=== PATIENT | female | born 1960 | race Caucasian/White ===

== ENCOUNTER 2016-07-09 08:59 | Day surgery (SDC) | payer OTHER ==
[2016-07-07 08:37] VITALS: BMI 36.0
[~2016-07-09 08:59] MED LIST: LACTATED RINGERS 1,000 ML IV SCH; MOXIFLOXACIN HCL 0.5% DROPS 3 ML BTL OP ONE; TETRACAINE 0.5% OPHTH (PF) DROPS 4 ML BTL OP ONE; TIMOLOL 0.5% OPHTH SOLN (PF) 0.2 ML DROPERETTE OP ONE
[2016-07-09 10:28] VITALS: RESP 16; TEMP 97.5
[2016-07-09] MEDS ORDERED: LIDOCAINE 1% 20 ML VIAL (10MG/ML) FOR IV START INTRADERMA ONE (10:32)
[2016-07-09] MEDS: PHENYLEPHRINE 2.5% OPHTH DRP 2ML OP NR ×3 (10:34→10:42)
[2016-07-09] MEDS: CYCLOPENTOLATE 1% OPHTH SOLN 2 ML BTL OP ONE ×3 (10:37→10:44)
[2016-07-09] MEDS ORDERED: MIDAZOLAM 2 MG/2 ML VIAL ONE (12:28)
[2016-07-09] MEDS ORDERED: fentaNYL (PF) 50 MCG/ML 2 ML AMP ONE (12:28)
[2016-07-09] MEDS ORDERED: LIDOCAINE 1% (PF) 10MG/ML VIAL MISCELLANE ONE (12:33)
[2016-07-09] MEDS ORDERED: BALANCED SALT IRRIG SOLN COMB2 15 ML IRRIG.SOLN INTRAOCULA ONE (12:33)
[2016-07-09] MEDS ORDERED: HYALURONATE SODIUM INTRAOCULAR 1 EACH SYRINGE (12MG/ML) INTRAOCULA ONE (12:33)
[2016-07-09] MEDS ORDERED: FLUORESCEIN STRIPS 1 MG STRIP LEFT EYE ONE (12:52)
[2016-07-09] MEDS ORDERED: EPINEPHrine (PF) 0.3 ML in BALANCED SALT IRRIG SOLN COMB2 500 ML IRRIGATION ONE (12:55)
--- NOTE | 2016-07-09 12:58 | P.OP ---
Date of Procedure: 07/09/16 Preoperative Diagnosis: & CS & PSC &b reg astigmatism Postoperative Diagnosis: same Procedure(s) Performed: PIOL, OS Implants: [id number] 18.50 Anesthesia: MAC Surgeon: Brennan Mas Estimated Blood Loss (ml): 0 Pathology: none sent Condition: stable Disposition: same day Indications for Procedure: blurry vision Operative Findings: No complications
[2016-07-09 13:18] VITALS: BP 130/79; PULSE 74
--- NOTE | 2016-07-09 21:51 | OP ---
DATE OF SERVICE: 07/09/2016 SURGEON: KELLY GREENWOOD MD GROCERY BUYER: PREOPERATIVE DIAGNOSES: Nuclear sclerosis, cortical sclerosis, posterior subcapsular cataract, and regular astigmatism. POSTOPERATIVE DIAGNOSES: Nuclear sclerosis, cortical sclerosis, posterior subcapsular cataract, and regular astigmatism. OPERATION: Phacoemulsification of cataract and intraocular lens implant of the left eye. ANESTHESIA: Topical. ESTIMATED BLOOD LOSS: None. SPECIMENS REMOVED: None. COMPLICATIONS: OPERATIVE FINDINGS: DESCRIPTION OF PROCEDURE: NARRATIVE: After obtaining the appropriate consent, the patient was brought to the operating room. There she was asked to sit upright and the axes of 0 and 180 degrees was marked with a gentian karina marker on her corneal limbus. She was then placed in the proper supine position under cardiac monitoring, then prepped and draped in the usual sterile manner. She was approached from her left temporal side. Using previously acquired corneal topography information, the axis of 92 degrees was identified and marked with the gentian karina marker. At the 5:00 o'clock position a 1.1 mm stab blade was used to create a paracentesis port. Through this opening, 1% Xylocaine MPF 50-50 mix with balance salt solution was injected into the anterior chamber. This was followed by stabilization of the anterior chamber with Amvisc. At the 3:00 position a 2.5 mm keratome was used to create a self-sealing corneal flap incision in a Langerman fashion. A cystotome was then introduced into the anterior chamber to begin a continuous tear capsulorrhexis, which was completed using the Utrata forceps. Hydrodissection and hydrodelineation of the lens was accomplished with balanced salt solution. Phacoemulsification of the lens utilizing phaco chop was accomplished in 7.16 seconds at 10% power. Additional Xylocaine MPF was instilled into the anterior chamber. This was followed by removal of the remaining cortex under irrigation and aspiration as well as careful polishing of the posterior capsule in the capsule vacuum mode. Additional Amvisc was then used to stabilize the capsular bag, and deepen the anterior chamber and an SARAI model ZCT 225 18.5 diopter spherical equivalent 2.25 diopters cylinder correction posterior chamber was then introduced into the capsular bag without difficulty. Once the remaining viscoelastic was removed from in and around the intraocular lens, the lens was rotated in alignment with the previously placed corneal ravi at the 92 degrees axis. The lens was slightly tamponading in position against the posterior capsule to ensure stability. The remaining viscoelastic was removed from the anterior chamber. The eye was then brought to normal intraocular pressure through the paracentesis port with balanced salt solution and to ensure stability of the implant both the paracentesis as well as the temporal incision were covered with ReSure. Watertight integrity was confirmed using a fluorescein strip. The patient then received 2 drops of 0.5% timolol followed by 2 drops of Vigamox, was then lightly patched and shielded in the usual manner. There were no complications from the procedure. She tolerated the procedure well and was returned to outpatient recovery in good condition.
== END 2016-07-09 13:26 | disposition home or self-care (01) ==
LOC: OR 08:59
PROVIDERS: ATTEND Ophthalmology
DX: H25.042 Posterior subcapsular polar age-related cataract, left eye (principal); H25.012 Cortical age-related cataract, left eye; H25.12 Age-related nuclear cataract, left eye; H52.223 Regular astigmatism, bilateral; I10 Essential (primary) hypertension; E78.5 Hyperlipidemia, unspecified; Z79.899 Other long term (current) drug therapy; Z88.2 Allergy status to sulfonamides
CPT/HCPCS: 66984; V2787; C1780; J2250; J0171; J3010; J2001; 99152; 99153

== ENCOUNTER 2017-07-18 10:41 | Observation (INO) | payer BC, OTHER ==
[2017-07-18] MEDS ORDERED: NITROGLYCERIN OINT 1 INCH/GM PACKET TOPICAL STA (10:57)
[2017-07-18] MEDS ORDERED: ASPIRIN 81 MG PO STA (10:57)
[2017-07-18] MEDS ORDERED: NITROGLYCERIN SL TABS 0.4 MG TAB SUBLINGUAL STA (10:57)
--- NOTE | 2017-07-18 11:01 | ED ---
General Adult HPI - General Chief complaint: Chest Pain Stated complaint: CHEST PAIN Time Seen by Provider: 07/18/17 10:41 Source: patient, family, RN notes reviewed Mode of arrival: wheelchair Limitations: no limitations - History of Present Illness Initial comments: This is a 56-year-old female presents emergency department stating that she started having chest pain at about 9:00 this morning. Patient states it appeared to start in her back, and come straight through to her chest she said it was very intense she was short of breath not diaphoretic mildly nauseous but she stated that it lasted for about 20 minutes and then subsided but never completely went away. Patient states she still has some of the chest discomfort at this time. Patient states at this time she's not short of breath. Patient denies any recent fever chills per patient denies any diabetes high cholesterol. Patient states she does have hypertension. Patient denies smoking and she denies a family history of heart disease. Patient denies any abdominal pain patient denies vomiting or diarrhea. Patient denies lightheadedness dizziness or near syncopal episode. Patient denies any calf pain or leg swelling. Patient states occasional deep breathing seems to make the pain worse - Related Data Home Medications Medication Instructions Recorded Confirmed Hydrochlorothiazide 25 mg PO DAILY 05/19/16 07/18/17 Fenofibrate 54 mg PO DAILY 06/10/16 07/18/17 Lisinopril [Prinivil] 5 mg PO DAILY 07/18/17 07/18/17 Allergies Allergy/AdvReac Type Severity Reaction Status Date / Time Sulfa (Sulfonamide Allergy Rash/Hives, Verified 07/18/17 11:51 Antibiotics) and Nausea Review of Systems ROS Statement: Those systems with pertinent positive or pertinent negative responses have been documented in the HPI. ROS Other: All systems not noted in ROS Statement are negative. Past Medical History Past Medical History: Hyperlipidemia, Hypertension Additional Past Medical History / Comment(s): . History of Any Multi-Drug Resistant Organisms: None Reported Past Surgical History: Hysterectomy, Tubal Ligation Additional Past Surgical History / Comment(s): LAP BAND , RIGHT SHOULDER, RIGHT ANKLE -PLATE AND SCREW- IRRITATING REMOVED FROM ANKLE, rt eye cataract Past Anesthesia/Blood Transfusion Reactions: No Reported Reaction Past Psychological History: No Psychological Hx Reported Smoking Status: Never smoker Past Alcohol Use History: Rare Past Drug Use History: None Reported - Past Family History Father Family Medical History: Cancer Mother Family Medical History: Cancer General Exam - General Exam Comments Initial Comments: GENERAL: Patient is well-developed and well-nourished. Patient is nontoxic and well- hydrated and is in mild distress. ENT: Neck is soft and supple. No significant lymphadenopathy is noted. Oropharynx is clear. Moist mucous membranes. Neck has full range of motion without eliciting any pain. EYES: The sclera were anicteric and conjunctiva were pink and moist. Extraocular movements were intact and pupils were equal round and reactive to light. Eyelids were unremarkable. PULMONARY: Unlabored respirations. Good breath sounds bilaterally. No audible rales rhonchi or wheezing was noted. CARDIOVASCULAR: There is a regular rate and rhythm without any murmurs gallops or rubs. ABDOMEN: Soft and nontender with normal bowel sounds. No palpable organomegaly was noted. There is no palpable pulsatile mass. SKIN: Skin is clear with no lesions or rashes and otherwise unremarkable. NEUROLOGIC: Patient is alert and oriented x3. Cranial nerves II through XII are grossly intact. Motor and sensory are also intact. Normal speech, volume and content. Symmetrical smile. MUSCULOSKELETAL: Normal extremities with adequate strength and full range of motion. No lower extremity swelling or edema. No calf tenderness. LYMPHATICS: No significant lymphadenopathy is noted PSYCHIATRIC: Normal psychiatric evaluation. Normal interpersonal interactions appears functionally intact in deals appropriately with others. No signs of depression. No signs of anxiety. Limitations: no limitations Course Vital Signs 07/18/17 07/18/17 07/18/17 10:45 11:09 11:55 Temperature 97.6 F 97.1 F L Pulse Rate 89 83 72 Respiratory 20 17 16 Rate Blood Pressure 164/90 133/66 149/77 O2 Sat by Pulse 100 98 95 Oximetry 07/18/17 07/18/17 12:28 14:17 Temperature 97.7 F Pulse Rate 71 62 Respiratory 16 16 Rate Blood Pressure 144/75 134/73 O2 Sat by Pulse 98 98 Oximetry Medical Decision Making - Medical Decision Making EKG shows a normal sinus rhythm at 82 bpm ND interval is 176 QRS is 108 QT interval 370 QTC is 441 per patient's EKG shows no ST segment elevation or depression or T wave abnormalities are noted. I went back into the room to reevaluate the patient she stated after the nitroglycerin she had no more pain unless she moves. Patient states while she lies are still there is actually no pain when she moves from one side to the other she develops a little bit of back pain but no chest pain. Chest x-ray shows no acute abnormality. - Lab Data Result diagrams: 07/18/17 10:50 07/18/17 10:50 Lab Results 07/18/17 07/18/17 07/18/17 Range/Units 10:50 10:50 10:50 WBC 8.6 (3.8-10.6) k/uL RBC 4.79 (3.80-5.40) m/uL Hgb 14.4 (11.4-16.0) gm/dL Hct 43.2 (34.0-46.0) % MCV 90.3 (80.0-100.0) fL MCH 30.1 (25.0-35.0) pg MCHC 33.4 (31.0-37.0) g/dL RDW 12.3 (11.5-15.5) % Plt Count 409 (150-450) k/uL Neutrophils % 68 % Lymphocytes % 25 % Monocytes % 4 % Eosinophils % 2 % Basophils % 0 % Neutrophils # 5.9 (1.3-7.7) k/uL Lymphocytes # 2.2 (1.0-4.8) k/uL Monocytes # 0.3 (0-1.0) k/uL Eosinophils # 0.1 (0-0.7) k/uL Basophils # 0.0 (0-0.2) k/uL PT (9.0-12.0) sec INR (<1.2) APTT (22.0-30.0) sec D-Dimer (<0.60) mg/L FEU Sodium 141 (137-145) mmol/L Potassium 4.1 (3.5-5.1) mmol/L Chloride 105 (98-107) mmol/L Carbon Dioxide 24 (22-30) mmol/L Anion Gap 12 mmol/L BUN 17 (7-17) mg/dL Creatinine 0.70 (0.52-1.04) mg/dL Est GFR (MDRD) Af Amer >60 (>60 ml/min/1.73 sqM) Est GFR (MDRD) Non-Af >60 (>60 ml/min/1.73 sqM) Glucose 171 H (74-99) mg/dL Calcium 9.6 (8.4-10.2) mg/dL Magnesium 2.0 (1.6-2.3) mg/dL Total Bilirubin 0.5 (0.2-1.3) mg/dL AST 25 (14-36) U/L ALT 32 (9-52) U/L Alkaline Phosphatase 79 (38-126) U/L Total Creatine Kinase 128 (30-135) U/L CK-MB (CK-2) 1.0 (0.0-2.4) ng/mL CK-MB (CK-2) Rel Index 0.8 Troponin I <0.012 (0.000-0.034) ng/mL Total Protein 7.0 (6.3-8.2) g/dL Albumin 4.1 (3.5-5.0) g/dL Amylase 67 (30-110) U/L Lipase 193 (23-300) U/L 07/18/17 Range/Units 10:50 WBC (3.8-10.6) k/uL RBC (3.80-5.40) m/uL Hgb (11.4-16.0) gm/dL Hct (34.0-46.0) % MCV (80.0-100.0) fL MCH (25.0-35.0) pg MCHC (31.0-37.0) g/dL RDW (11.5-15.5) % Plt Count (150-450) k/uL Neutrophils % % Lymphocytes % % Monocytes % % Eosinophils % % Basophils % % Neutrophils # (1.3-7.7) k/uL Lymphocytes # (1.0-4.8) k/uL Monocytes # (0-1.0) k/uL Eosinophils # (0-0.7) k/uL Basophils # (0-0.2) k/uL PT 9.9 (9.0-12.0) sec INR 1.0 (<1.2) APTT 22.7 (22.0-30.0) sec D-Dimer 0.31 (<0.60) mg/L FEU Sodium (137-145) mmol/L Potassium (3.5-5.1) mmol/L Chloride (98-107) mmol/L Carbon Dioxide (22-30) mmol/L Anion Gap mmol/L BUN (7-17) mg/dL Creatinine (0.52-1.04) mg/dL Est GFR (MDRD) Af Amer (>60 ml/min/1.73 sqM) Est GFR (MDRD) Non-Af (>60 ml/min/1.73 sqM) Glucose (74-99) mg/dL Calcium (8.4-10.2) mg/dL Magnesium (1.6-2.3) mg/dL Total Bilirubin (0.2-1.3) mg/dL AST (14-36) U/L ALT (9-52) U/L Alkaline Phosphatase (38-126) U/L Total Creatine Kinase (30-135) U/L CK-MB (CK-2) (0.0-2.4) ng/mL CK-MB (CK-2) Rel Index Troponin I (0.000-0.034) ng/mL Total Protein (6.3-8.2) g/dL Albumin (3.5-5.0) g/dL Amylase (30-110) U/L Lipase (23-300) U/L Disposition Clinical Impression: Unstable angina Disposition: ADMITTED IP TO THIS HOSP
[2017-07-18 11:14] LABS: Basophils % (A) 0 %; Eosinophils # (A) 0.1 k/uL (0-0.7); Eosinophils % (A) 2 %; HCT 43.2 % (34.0-46.0); HGB 14.4 gm/dL (11.4-16.0); Lymphocytes # (A) 2.2 k/uL (1.0-4.8); Lymphocytes % (A) 25 %; MCH 30.1 pg (25.0-35.0); MCHC 33.4 g/dL (31.0-37.0); MCV 90.3 fL (80.0-100.0); Mean Platelet Volume 6.6; Monocytes # (A) 0.3 k/uL (0-1.0); Monocytes % (A) 4 %; Neutrophils # (A) 5.9 k/uL (1.3-7.7); Neutrophils % (A) 68 %; Platelet Count 409 k/uL (150-450); RBC 4.79 m/uL (3.80-5.40); RDW 12.3 % (11.5-15.5); WBC 8.6 k/uL (3.8-10.6)
[2017-07-18 11:25] LABS: ALT 32 U/L (9-52); AST 25 U/L (14-36); Albumin 4.1 g/dL (3.5-5.0); Alkaline Phosphatase 79 U/L (38-126); Amylase 67 U/L (30-110); Anion Gap 12 mmol/L; Blood Urea Nitrogen 17 mg/dL (7-17); Calcium 9.6 mg/dL (8.4-10.2); Carbon Dioxide 24 mmol/L (22-30); Chloride 105 mmol/L (98-107); Glucose 171 mg/dL (74-99); Lipase 193 U/L (23-300); Potassium 4.1 mmol/L (3.5-5.1); Sodium 141 mmol/L (137-145); Total Bilirubin 0.5 mg/dL (0.2-1.3)
[2017-07-18 11:27] LABS: D-Dimer 0.31 mg/L FEU (<0.60)
[2017-07-18 11:31] LABS: Partial Thromboplastin Time 22.7 sec (22.0-30.0); Prothrombin Time 9.9 sec (9.0-12.0)
--- NOTE | 2017-07-18 11:40 | XR ---
EXAMINATION TYPE: XR chest 2V DATE OF EXAM: 07/18/2017 HISTORY: Chest Pain. REFERENCE: NONE. FINDINGS: There is platelike atelectasis in the right midlung. The lungs are otherwise clear. Pleural space are clear. The heart is not enlarged. There is mild hypertrophic spondylosis within the spine. IMPRESSION: SCARRING VERSUS ATELECTASIS, RIGHT MIDLUNG.
[2017-07-18 11:41] LABS: Creatine Kinase 128 U/L (30-135)
[2017-07-18 11:54] LABS: Troponin I <0.012 ng/mL (0.000-0.034)
[2017-07-18 11:57] VITALS: RESP 16
[2017-07-18] MEDS ORDERED: HEPARIN SODIUM,PORCINE 5,000 UNIT/ML 1 ML VIAL IV ONE (12:06)
[2017-07-18] MEDS ORDERED: NITROGLYCERIN SL TABS 0.4 MG TAB SUBLINGUAL PRN (12:07)
[2017-07-18] MEDS ORDERED: HEPARIN SOD,PORK IN 0.45% NACL 25,000 UNIT in 0.45% NACL 1 500ML.BAG IV SCH (12:15)
[2017-07-18] MEDS: SODIUM CHLORIDE 0.9% 1,000 ML IV SCH (12:25)
[2017-07-18 15:15] VITALS: BMI 40.8
[2017-07-18] MEDS ORDERED: HEPARIN SODIUM,PORCINE 5,000 UNIT/ML 1 ML VIAL IV PRN (16:31)
[2017-07-18] MEDS ORDERED: ACETAMINOPHEN TAB 325 MG TAB PO PRN (16:36)
[2017-07-18] MEDS: LISINOPRIL 5 MG TAB PO SCH (17:31)
[2017-07-18] MEDS: FENOFIBRATE 54 MG TAB PO SCH (17:31)
[2017-07-18] MEDS: HYDROCHLOROTHIAZIDE 25 MG TAB PO SCH (17:31)
[2017-07-18] MEDS: NITROGLYCERIN OINT 1 INCH/GM PACKET TOPICAL SCH (17:42)
[2017-07-18 18:46] LABS: Creatine Kinase 110 U/L (30-135)
[2017-07-18 19:26] LABS: Creatine Kinase MB 0.9 ng/mL (0.0-2.4); Troponin I <0.012 ng/mL (0.000-0.034)
[2017-07-18 23:52] LABS: Creatine Kinase 105 U/L (30-135)
[2017-07-19 00:05] LABS: Creatine Kinase MB 0.8 ng/mL (0.0-2.4); Troponin I <0.012 ng/mL (0.000-0.034)
[2017-07-19] MEDS: NITROGLYCERIN OINT 1 INCH/GM PACKET TOPICAL SCH ×2 (00:11→05:24)
[2017-07-19 03:03] LABS: Cholesterol 218 mg/dL (<200); HDL Cholesterol 50 mg/dL (40-60); LDL Cholesterol,Calculated 124 mg/dL (0-99); Triglycerides 222 mg/dL (<150)
[2017-07-19] MEDS ORDERED: ASPIRIN 325 MG TAB PO SCH (09:00)
[2017-07-19] MEDS: HYDROCHLOROTHIAZIDE 25 MG TAB PO SCH (09:08)
[2017-07-19] MEDS: LISINOPRIL 5 MG TAB PO SCH (09:08)
[2017-07-19] MEDS: FENOFIBRATE 54 MG TAB PO SCH (09:08)
[2017-07-19 12:07] VITALS: BP 129/77; PULSE 70; TEMP 97.6
--- NOTE | 2017-07-19 12:25 | P.HPIM ---
History of Present Illness 56-year-old female who presented to the emergency room with back pain. Patient said that her pain started all of a sudden. No follow trauma. She said that her pain was associated with chest pain as well. She denies being dizzy, lightheaded, no diaphoresis or nausea. Patient said that the episode lasted approximately 20 minutes. She rates her pain as 6 out of 10 in severity. Patient was evaluated in the emergency room and 12-lead EKG showed no acute ischemic changes. chest x-ray showed a right midlung scarring but no other acute findings. Patient was placed on observation and was seen and evaluated by cardiology. Her pain was thought to be atypical in nature. She was cleared for discharge home. Plan to follow-up in the office and may consider stress testing as an outpatient. Review of Systems Review of system: 14 points review of systems were obtained and were negative except to what were mentioned in the HPI. Past Medical History Past Medical History: Hyperlipidemia, Hypertension Additional Past Medical History / Comment(s): . History of Any Multi-Drug Resistant Organisms: None Reported Past Surgical History: Hysterectomy, Tubal Ligation Additional Past Surgical History / Comment(s): LAP BAND , RIGHT SHOULDER, RIGHT ANKLE -PLATE AND SCREW- IRRITATING REMOVED FROM ANKLE, rt eye cataract Past Anesthesia/Blood Transfusion Reactions: No Reported Reaction Past Psychological History: No Psychological Hx Reported Smoking Status: Never smoker Past Alcohol Use History: Rare Past Drug Use History: None Reported - Past Family History Father Family Medical History: Cancer Mother Family Medical History: Cancer Medications and Allergies Home Medications Medication Instructions Recorded Confirmed Type Hydrochlorothiazide 25 mg PO DAILY 05/19/16 07/18/17 History Fenofibrate 54 mg PO DAILY 06/10/16 07/18/17 History Lisinopril [Prinivil] 5 mg PO DAILY 07/18/17 07/18/17 History Allergies Allergy/AdvReac Type Severity Reaction Status Date / Time Sulfa (Sulfonamide Allergy Rash/Hives, Verified 07/18/17 11:51 Antibiotics) and Nausea Physical Exam Vitals: Vital Signs Temp Pulse Pulse Resp BP BP Pulse Ox 07/19/17 12:07 95 07/19/17 12:00 97.6 F 70 16 129/77 95 07/19/17 08:00 97.5 F L 82 16 131/70 98 07/19/17 07:17 97 07/19/17 04:00 97.9 F 82 16 133/68 97 07/19/17 00:00 97.6 F 75 16 132/71 94 L 07/18/17 23:26 81 16 07/18/17 20:00 98.3 F 75 16 120/66 94 L 07/18/17 14:26 97.5 F L 73 16 123/70 98 07/18/17 14:17 97.7 F 62 16 134/73 98 07/18/17 12:28 71 16 144/75 98 Intake and Output 07/18/17 07/19/17 07/19/17 22:59 06:59 14:59 Intake Total 142.333 239.813 Balance 142.333 239.813 Intake: Intake, IV Titration 142.333 239.813 Amount Heparin Sod,Pork in 0.45% 142.333 239.813 NaCl 25,000 unit In 0.45 % NaCl 1 500ml.bag @ 8.89 UNITS/KG/HR 20 mls/hr IV .Q24H [facility] Rx#:[id number] Other: # Voids 2 3 General: The patient is awake and alert, in no distress Eye: there is normal conjunctiva bilaterally. Neck: The neck is supple, there is no JVD. Cardiovascular: Normal S1-S2, no S3-S4, no murmurs. Respiratory: Lungs clear to auscultation bilaterally Gastrointestinal: Abdomen is soft, nontender Musculoskeletal: There is no pedal edema. Neurological:. Speech is normal. Skin: Skin is warm and dry Results CBC & Chem 7: 07/18/17 10:50 07/18/17 10:50 Labs: Abnormal Lab Results - Last 24 Hours (Table) 07/19/17 07/19/17 Range/Units 02:19 02:19 APTT 31.0 H (22.0-30.0) sec Triglycerides 222 H (<150) mg/dL Cholesterol 218 H (<200) mg/dL LDL Cholesterol, Calc 124 H (0-99) mg/dL Thrombosis Risk Factor Assmnt - Choose All That Apply Any of the Below Risk Factors Present?: Yes Each Factor Represents 1 point: Age 41-60 years, Obesity (BMI >25) Thrombosis Risk Factor Assessment Total Risk Factor Score: 2 Thrombosis Risk Factor Assessment Level: Low Risk Assessment and Plan Assessment: 56-year-old female who presented to the emergency room with back pain. Patient said that her pain started all of a sudden. No follow trauma. She said that her pain was associated with chest pain as well. She denies being dizzy, lightheaded, no diaphoresis or nausea. Patient said that the episode lasted approximately 20 minutes. She rates her pain as 6 out of 10 in severity. Patient was evaluated in the emergency room and 12-lead EKG showed no acute ischemic changes. chest x-ray showed a right midlung scarring but no other acute findings. Patient was placed on observation and was seen and evaluated by cardiology. Her pain was thought to be atypical in nature. She was cleared for discharge home. Plan to follow-up in the office and may consider stress testing as an outpatient.
--- NOTE | 2017-07-19 12:26 | P.DS ---
Providers Date of admission: 07/18/17 12:09 Attending physician: Viral Cee Consults: 07/18/17 12:07 Consult Physician Urgent Consulting Provider: [facility] Consult Reason/Comments: Unstable angina Do you want consulting provider notified?: Yes Primary care physician: Sophia Hinton [facility] Course: 56-year-old female who presented to the emergency room with back pain. Patient said that her pain started all of a sudden. No follow trauma. She said that her pain was associated with chest pain as well. She denies being dizzy, lightheaded, no diaphoresis or nausea. Patient said that the episode lasted approximately 20 minutes. She rates her pain as 6 out of 10 in severity. Patient was evaluated in the emergency room and 12-lead EKG showed no acute ischemic changes. chest x-ray showed a right midlung scarring but no other acute findings. Patient was placed on observation and was seen and evaluated by cardiology. Her pain was thought to be atypical in nature. She was cleared for discharge home. Plan to follow-up in the office and may consider stress testing as an outpatient. Plan - Discharge Summary Discharge Rx Participant: No New Discharge Prescriptions: No Action Hydrochlorothiazide 25 mg PO DAILY Fenofibrate 54 mg PO DAILY Lisinopril [Prinivil] 5 mg PO DAILY Discharge Medication List Hydrochlorothiazide 25 mg PO DAILY 05/19/16 [History] Fenofibrate 54 mg PO DAILY 06/10/16 [History] Lisinopril [Prinivil] 5 mg PO DAILY 07/18/17 [History] Follow up Appointment(s)/Referral(s): Sophia Hinton MD [Primary Care Provider] - 1-2 days
--- NOTE | 2017-07-19 12:37 | P.CRDCN ---
History of Present Illness Consult date: 07/19/17 Consult reason: chest pain History of present illness: This is a pleasant 56-year-old female past medical history significant for hypertension, dyslipidemia and obesity. She denies history of coronary artery disease. We have been asked to see her in consultation for complaints of chest pain. 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 This pain was very sharp in nature and was associated with mild shortness of breath. She states the pain was persistent for approximately 45 minutes or so with no alleviating factors. This is an she decided to present to the hospital. The pain persisted in the emergency room for approximately another hour 45 minutes or so. She has had no recurrence of the pain. The pain did not radiate into the arm, neck or jaw. She denies associated nausea, vomiting, palpitations, dizziness, diaphoresis. EKG on arrival reveals sinus mechanism with an incomplete right bundle branch block. Chest x-ray negative for an acute cardiopulmonary process. Echocardiogram from the office reviewed from August 2011 reveals preserved left ventricular systolic function with ejection fraction 60%, mildly dilated left atrium, mild mitral, tricuspid and plan monitor regurg evident. Current cardiac medications include lisinopril, hydrochlorothiazide and fenofibrate. Cardiac enzymes negative 3, LDL 124, HDL 50. Review of Systems At the time of my exam: CONSTITUTIONAL: Denies fever. Denies chills. EYES: Denies blurred vision. Denies vision changes. Denies eye pain. EARS, NOSE, MOUTH & THROAT: Denies headache. Denies sore throat. Denies ear pain. CARDIOVASCULAR: Denies chest pain. Denies shortness of breath. Denies orthopnea. Denies PND. Denies palpitations. RESPIRATORY: Denies cough. GASTROINTESTINAL: Denies abdominal pain. Denies diarrhea. Denies constipation. Denies nausea. Denies vomiting. MUSCULOSKELETAL: Denies myalgias. INTEGUMENTARY: Denies pruitis. Denies rash. NEUROLOGIC: Denies numbness. Denies tingling. Denies weakness. PSYCHIATRIC: Denies anxiety. Denies depression. ENDOCRINE: Denies fatigue. Denies weight change. Denies polydipsia. Denies polyurina. GENITOURINARY: Denies burning, hematuria or urgency with micturation. HEMATOLOGIC: Denies history of anemia. Denies bleeding. Past Medical History Past Medical History: Hyperlipidemia, Hypertension Additional Past Medical History / Comment(s): . History of Any Multi-Drug Resistant Organisms: None Reported Past Surgical History: Hysterectomy, Tubal Ligation Additional Past Surgical History / Comment(s): LAP BAND , RIGHT SHOULDER, RIGHT ANKLE -PLATE AND SCREW- IRRITATING REMOVED FROM ANKLE, rt eye cataract Past Anesthesia/Blood Transfusion Reactions: No Reported Reaction Past Psychological History: No Psychological Hx Reported Smoking Status: Never smoker Past Alcohol Use History: Rare Past Drug Use History: None Reported - Past Family History Father Family Medical History: Cancer Mother Family Medical History: Cancer Medications and Allergies Home Medications Medication Instructions Recorded Confirmed Type Hydrochlorothiazide 25 mg PO DAILY 05/19/16 07/18/17 History Fenofibrate 54 mg PO DAILY 06/10/16 07/18/17 History Lisinopril [Prinivil] 5 mg PO DAILY 07/18/17 07/18/17 History Allergies Allergy/AdvReac Type Severity Reaction Status Date / Time Sulfa (Sulfonamide Allergy Rash/Hives, Verified 07/18/17 11:51 Antibiotics) and Nausea Physical Exam Vitals: Vital Signs Temp Pulse Pulse Resp BP BP Pulse Ox 07/19/17 07:17 97 07/19/17 04:00 97.9 F 82 16 133/68 97 07/19/17 00:00 97.6 F 75 16 132/71 94 L 07/18/17 23:26 81 16 07/18/17 20:00 98.3 F 75 16 120/66 94 L 07/18/17 14:26 97.5 F L 73 16 123/70 98 07/18/17 14:17 97.7 F 62 16 134/73 98 07/18/17 12:28 71 16 144/75 98 07/18/17 11:55 97.1 F L 72 16 149/77 95 07/18/17 11:09 83 17 133/66 98 07/18/17 10:45 97.6 F 89 20 164/90 100 Intake and Output 07/18/17 07/19/17 07/19/17 22:59 06:59 14:59 Intake Total 142.333 239.813 Balance 142.333 239.813 Intake: Intake, IV Titration 142.333 239.813 Amount Heparin Sod,Pork in 0.45% 142.333 239.813 NaCl 25,000 unit In 0.45 % NaCl 1 500ml.bag @ 8.89 UNITS/KG/HR 20 mls/hr IV .Q24H [facility] Rx#:[id number] Other: # Voids 2 3 Blood pressure 133/68 heart rate 71 afebrile GENERAL: This is a 56-year-old female in no apparent distress at the time of my examination. Obese. HEENT: Head is atraumatic, normocephalic. Pupils are equal, round. Sclerae anicteric. Conjunctivae are clear. Mucous membranes of the mouth are moist. Neck is supple. There is no jugular venous distention. No carotid bruit is heard. LUNGS: Clear to auscultation no wheezes, rales or rhonchi. No chest wall tenderness is noted on palpation or with deep breathing. HEART: Regular rate and rhythm without murmurs, rubs or gallops. S1 and S2 heard. ABDOMEN: Soft, nontender. Bowel sounds are heard. No organomegaly noted. EXTREMITIES: No evidence of peripheral edema and no calf tenderness noted. VASCULAR: Radial and dorsalis pedis pulses palpated, no evidence of clubbing. NEUROLOGIC: Patient is awake, alert and oriented x3. Results 07/18/17 10:50 07/18/17 10:50 Cardiac Enzymes 07/18/17 07/18/17 07/18/17 Range/Units 10:50 10:50 17:44 AST 25 (14-36) U/L CK-MB (CK-2) 1.0 0.9 (0.0-2.4) ng/mL Troponin I <0.012 <0.012 (0.000-0.034) ng/mL 07/18/17 Range/Units 23:00 AST (14-36) U/L CK-MB (CK-2) 0.8 (0.0-2.4) ng/mL Troponin I <0.012 (0.000-0.034) ng/mL Coagulation 07/18/17 07/18/17 07/19/17 Range/Units 10:50 17:44 02:19 PT 9.9 (9.0-12.0) sec APTT 22.7 26.8 31.0 H (22.0-30.0) sec Lipids 07/19/17 Range/Units 02:19 Triglycerides 222 H (<150) mg/dL Cholesterol 218 H (<200) mg/dL HDL Cholesterol 50 (40-60) mg/dL CBC 07/18/17 Range/Units 10:50 WBC 8.6 (3.8-10.6) k/uL RBC 4.79 (3.80-5.40) m/uL Hgb 14.4 (11.4-16.0) gm/dL Hct 43.2 (34.0-46.0) % Plt Count 409 (150-450) k/uL Comprehensive Metabolic Panel 07/18/17 Range/Units 10:50 Sodium 141 (137-145) mmol/L Potassium 4.1 (3.5-5.1) mmol/L Chloride 105 (98-107) mmol/L Carbon Dioxide 24 (22-30) mmol/L BUN 17 (7-17) mg/dL Creatinine 0.70 (0.52-1.04) mg/dL Glucose 171 H (74-99) mg/dL Calcium 9.6 (8.4-10.2) mg/dL AST 25 (14-36) U/L ALT 32 (9-52) U/L Alkaline Phosphatase 79 (38-126) U/L Total Protein 7.0 (6.3-8.2) g/dL Albumin 4.1 (3.5-5.0) g/dL Current Medications Generic Name Dose Route Start Last Admin Trade Name Freq PRN Reason Stop Dose Admin Acetaminophen 650 mg 07/18/17 16:36 Tylenol Tab PO Q4HR PRN Fever and/ or Pain Aspirin 325 mg 07/19/17 09:00 Aspirin PO DAILY [facility] Fenofibrate 54 mg 07/18/17 16:45 07/18/17 17:31 Lofibra PO 54 mg DAILY [facility] Administration Heparin Sodium (Porcine) 0 unit 07/18/17 16:31 Heparin IV PER PROTOCOL PRN Low PTT Protocol Hydrochlorothiazide 25 mg 07/18/17 16:45 07/18/17 17:31 Hydrodiuril PO 25 mg DAILY [facility] Administration Heparin Sodium/Sodium Chloride 500 mls @ 20 mls/hr 07/18/17 12:15 07/19/17 04 :21 25,000 unit/ Sodium Chloride IV 15.29 units/kg/hr .Q24H [facility] 34.4 mls/hr Protocol Titration 8.89 UNITS/KG/HR Sodium Chloride 1,000 mls @ 20 mls/hr 07/18/17 12:15 07/18/17 12:25 Saline 0.9% IV 20 mls/hr .Q24H [facility] Administration Lisinopril 5 mg 07/18/17 16:45 07/18/17 17:31 Zestril PO 5 mg DAILY [facility] Administration Nitroglycerin 1 inch 07/18/17 18:00 07/19/17 05:24 Nitro-Bid Oint TOPICAL Not Given Q6HR [facility] Nitroglycerin 0.4 mg 07/18/17 12:07 Nitrostat SUBLINGUAL Q5M PRN Chest Pain Intake and Output 07/18/17 07/19/17 07/19/17 22:59 06:59 14:59 Intake Total 142.333 239.813 Balance 142.333 239.813 Intake: Intake, IV Titration 142.333 239.813 Amount Heparin Sod,Pork in 0.45% 142.333 239.813 NaCl 25,000 unit In 0.45 % NaCl 1 500ml.bag @ 8.89 UNITS/KG/HR 20 mls/hr IV .Q24H [facility] Rx#:[id number] Other: # Voids 2 3 07/18/17 10:50 07/18/17 10:50 Assessment and Plan Assessment: ASSESSMENT 1. Pleuritic shoulder/chest pain, atypical. 2. Dyslipidemia, not controlled on fenofibrate with statin intolerance in the past. 3. Hypertension 4. Obesity PLAN An acute coronary event has been ruled out with negative cardiac enzymes and no acute EKG changes. Stable from a cardiac perspective for discharge home to follow up in 2-3 weeks for further cardiac testing as an outpatient. Lifestyle modifications for cholesterol lowering discussed and recommended. Thank you kindly for this consultation. Nurse Practitioner note has been reviewed, I agree with a documented findings and plan of care. Patient was seen and examined.
[2017-07-19] MEDS: SODIUM CHLORIDE 0.9% 1,000 ML IV SCH (12:52)
== END 2017-07-19 12:50 | disposition home or self-care (01) ==
LOC: EC 10:41 → 3OBS 12:09
PROVIDERS: ADMIT Internal Medicine; ATTEND Internal Medicine
DX: R07.89 Other chest pain (principal); R07.81 Pleurodynia; M25.512 Pain in left shoulder; R06.02 Shortness of breath; I10 Essential (primary) hypertension; M54.9 Dorsalgia, unspecified; E78.5 Hyperlipidemia, unspecified; E66.9 Obesity, unspecified; Z68.41 Body mass index [BMI] 40.0-44.9, adult; Z79.899 Other long term (current) drug therapy; Z88.2 Allergy status to sulfonamides; Z98.84 Bariatric surgery status; Z80.9 Family history of malignant neoplasm, unspecified
CPT/HCPCS: 99285 ×2; 96376 ×2; 96365 ×2; 96366 ×4; 36415; 93005; 85379; 80061; 80053; 82150; 82550; 82553; 83690; 83735; 84484; 85025; 85610; 85730 ×2; 71046; G0378 ×2; J1644 ×2

== ENCOUNTER → 2017-09-16 | Outpatient (CLI) | payer BC ==
--- NOTE | 2017-09-18 10:36 | MM ---
Reason for exam: screening (asymptomatic). Last mammogram was performed 1 year and 7 months ago. History: Patient is postmenopausal. Benign MG stereo VAD BX LT of the left breast, February 21, 2015. Physical Findings: A clinical breast exam by your physician is recommended on an annual basis and results should be correlated with mammographic findings. MG 3D Screening Mammo W/Cad Bilateral CC and MLO view(s) were taken. Prior study comparison: February 27, 2016, left breast MG 3d work up w/cad LT. February 22, 2016, bilateral MG 3d screening mammo w/cad. The breast tissue is heterogeneously dense. This may lower the sensitivity of mammography. No suspicious abnormality. Left biopsy marker noted. No significant changes when compared with prior studies. ASSESSMENT: Negative, BI-RAD 1 RECOMMENDATION: Routine screening mammogram of both breasts in 1 year.
== END | disposition home or self-care (01) ==
LOC: RADMAMWWP 06:51
PROVIDERS: ATTEND Family Medicine
DX: Z12.31 Encounter for screening mammogram for malignant neoplasm of breast (principal)
CPT/HCPCS: 77063; 77067

== ENCOUNTER 2018-04-04 13:05 | Emergency (ER) | payer BC ==
[2018-04-04 13:13] VITALS: BP 137/82; PULSE 85; RESP 18; TEMP 97.8
--- NOTE | 2018-04-04 13:39 | ED ---
Upper Extremity HPI - General Chief Complaint: Extremity Injury, Upper Stated Complaint: rt arm injury Time Seen by Provider: 04/04/18 13:15 Source: patient, RN notes reviewed Mode of arrival: ambulatory Limitations: no limitations - History of Present Illness Initial Comments: 57-year-old female presents emergency Department chief complaint of right arm pain. Patient states that she tripped and fell yesterday with her arm outstretched. Patient states she felt like she had cramping her right bicep and noticed that it was enlarged. Patient states it's worse today. Patient has pain when she flexes her elbow. Patient is right-hand dominant. Denies any paresthesias. Patient states that there is no ecchymosis at this time. Patient offers no other complaints. - Related Data Home Medications Medication Instructions Recorded Confirmed Hydrochlorothiazide 25 mg PO DAILY 05/19/16 07/18/17 Fenofibrate 54 mg PO DAILY 06/10/16 07/18/17 Lisinopril [Prinivil] 5 mg PO DAILY 07/18/17 07/18/17 Previous Rx's Medication Instructions Recorded Ibuprofen [Motrin] 600 mg PO Q8HR PRN #30 tab 04/04/18 Allergies Allergy/AdvReac Type Severity Reaction Status Date / Time Sulfa (Sulfonamide Allergy Rash/Hives, Verified 04/04/18 13:13 Antibiotics) and Nausea Review of Systems ROS Statement: Those systems with pertinent positive or pertinent negative responses have been documented in the HPI. ROS Other: All systems not noted in ROS Statement are negative. Past Medical History Past Medical History: Hyperlipidemia, Hypertension Additional Past Medical History / Comment(s): . History of Any Multi-Drug Resistant Organisms: None Reported Past Surgical History: Hysterectomy, Tubal Ligation Additional Past Surgical History / Comment(s): LAP BAND , RIGHT SHOULDER, RIGHT ANKLE -PLATE AND SCREW- IRRITATING REMOVED FROM ANKLE, rt eye cataract Past Anesthesia/Blood Transfusion Reactions: No Reported Reaction Past Psychological History: No Psychological Hx Reported Smoking Status: Never smoker Past Alcohol Use History: None Reported Past Drug Use History: None Reported - Past Family History Father Family Medical History: Cancer Mother Family Medical History: Cancer General Exam Limitations: no limitations General appearance: alert, in no apparent distress Neck exam: Present: normal inspection, full ROM. Absent: tenderness, meningismus, lymphadenopathy Respiratory exam: Present: normal lung sounds bilaterally. Absent: respiratory distress, wheezes, rales, rhonchi, stridor Cardiovascular Exam: Present: regular rate, normal rhythm, normal heart sounds. Absent: systolic murmur, diastolic murmur, rubs, gallop, clicks Extremities exam: Present: other (Right shoulder full range of motion, neurovascular intact right upper extremity, there is tenderness over the right bicipital groove on the right shoulder. Patient has full range motion of right elbow but has discomfort with flexion. Reflexes 2 seconds there is no forearm tenderness) Course Vital Signs 04/04/18 13:11 Temperature 97.8 F Pulse Rate 85 Respiratory 18 Rate Blood Pressure 137/82 O2 Sat by Pulse 98 Oximetry Medical Decision Making - Medical Decision Making 57-year-old female presents emergency department for right arm injury. Patient has a proximal bicipital tendon rupture. Patient discussed with Dr. jacobs on -call for orthopedics. Patient we placed in a sling for comfort and follow-up with orthopedics on Thursday. Return parameters were discussed. Disposition Clinical Impression: Biceps tendon rupture, proximal Disposition: HOME SELF-CARE Condition: Stable Instructions: Tendon Rupture (ED) Additional Instructions: Please return to the Emergency Department if symptoms worsen or any other concerns. Prescriptions: Ibuprofen [Motrin] 600 mg PO Q8HR PRN #30 tab PRN Reason: Pain Is patient prescribed a controlled substance at d/c from ED?: No Referrals: Sophia Hinton MD [Primary Care Provider] - 1-2 days Chao Phillips MD [Medical Doctor] - 1-2 days Time of Disposition: 14:26
--- NOTE | 2018-04-04 13:47 | XR ---
EXAMINATION TYPE: XR humerus RT , 2 VIEWS DATE OF EXAM ORDERED: 04/04/2018 HISTORY: Pain. COMPARISON: None. FINDINGS: No long bone fracture or dislocation is seen. IMPRESSION: NO ACUTE OSSEOUS LESION.
== END 2018-04-04 14:35 | disposition home or self-care (01) ==
LOC: EC 13:05
DX: S46.211A Strain of muscle, fascia and tendon of other parts of biceps, right arm, initial encounter (principal); E78.5 Hyperlipidemia, unspecified; I10 Essential (primary) hypertension; Z79.899 Other long term (current) drug therapy; Z88.2 Allergy status to sulfonamides; W01.0XXA Fall on same level from slipping, tripping and stumbling without subsequent striking against object, initial encounter
CPT/HCPCS: 99283

== ENCOUNTER → 2018-10-21 | Outpatient (CLI) | payer OTHER ==
--- NOTE | 2018-10-21 13:08 | BD ---
EXAMINATION TYPE: Axial Bone Density DATE OF EXAM: 10/21/2018 CLINICAL HISTORY: Height: 65.5 Weight: 258 FRAX RISK QUESTIONS: Alcohol (3 or more units per day): no Family History (Parent hip fracture): yes, mother Glucocorticoids (More than 3mos): no (Ex: prednisone, prednisolone, methylprednisolone, dexamethasone, and hydrocortisone). History of Fracture in Adulthood: yes, ankle Secondary Osteoporosis: 1. Type 1 Diabetes: no 2. Hyperthyroidism: no 3. Menopause before 45: no 4. Malnutrition: no 5. Chronic liver disease: no Rheumatoid Arthritis: no Current Tobacco Use: no RISK FACTORS HISTORY OF: Family History of Osteoporosis: possibly Active: yes Diet low in dairy products/other sources of calcium: no Postmenopausal woman: yes Take estrogen and/or progesterone medications: no Lost more than 2 inches in height since high school: unsure, states height was possibly about 6&3/4 Frequent falls: no Poor Health: no Hyperparathyroidism: no Adrenal Insufficiency: no MEDICATIONS: Prednisone or other steroids: no Thyroid Medications: Which medication: yes Which medication: Synthroid How Long: about one month Osteoporosis Medications: no Additional Medications: recently placed on Invokana about one month ago and a cholesterol med EXAM MEASUREMENTS: Bone mineral densitometry was performed using the [employer] System. Bone mineral density as measured about the Lumbar spine is: ----- L1-L4(G/cm2): 1.438 T Score Values are as follows: ----- L2: 2.4 ----- L3: 1.8 ----- L4: 1.9 ----- L1-L4: 2.1 Bone mineral density BASELINE Bone mineral density about the R hip (g/cm2): 1.052 Bone mineral density about the L hip (g/cm2):1.112 T Score values are as follows: -----R Neck: 0.1 -----L Neck: 0.5 -----R Total: 1.2 -----L Total: 1.8 Bone mineral density BASELINE IMPRESSION: Normal (Values between +1 and -1 indicate normal bone mass). Consider repeating this study in 5 year s or sooner if there is some new clinical indication. NOTE: T-SCORE=SD OF THE YOUNG ADULT MEAN.
--- NOTE | 2018-10-22 13:56 | MM ---
Reason for exam: screening (asymptomatic). Last mammogram was performed 1 year and 1 month ago. History: Patient is postmenopausal. Benign MG stereo VAD BX LT of the left breast, February 21, 2015. Physical Findings: A clinical breast exam by your physician is recommended on an annual basis and results should be correlated with mammographic findings. MG 3D Screening Mammo W/Cad Bilateral CC, MLO, and XCCL view(s) were taken. Prior study comparison: September 16, 2017, bilateral MG 3d screening mammo w/cad. February 27, 2016, left breast MG 3d work up w/cad LT. The breast tissue is heterogeneously dense. This may lower the sensitivity of mammography. Finding #1: There is a 15 mm circumscribed round mass located 11 cm from the nipple in the outer quadrant, posterior position of the left breast on MLO 16/79 and CC 17/72. Finding #2: There are typically benign round, regional calcifications in the left breast. New finding since February 27, 2016. ASSESSMENT: Incomplete: need additional imaging evaluation, BI-RAD 0 RECOMMENDATION: Ultrasound of the left breast. [facility] will attempt to contact patient to return for ultrasound.
== END | disposition home or self-care (01) ==
LOC: RADMAMWWP 08:32
PROVIDERS: ATTEND Family Medicine
DX: Z12.31 Encounter for screening mammogram for malignant neoplasm of breast (principal); M84.80 Other disorders of continuity of bone, unspecified site
CPT/HCPCS: 77063; 77067; 77080

== ENCOUNTER → 2018-10-29 | Outpatient (CLI) | payer OTHER ==
--- NOTE | 2018-10-29 09:55 | USB ---
Reason for exam: additional evaluation requested from abnormal screening. History: Patient is postmenopausal. Benign MG stereo VAD BX LT of the left breast, February 21, 2015. Physical Findings: Nurse did not find any significant physical abnormalities on exam. US Breast Workup Limited LT Left limited breast ultrasound including focal area of concern, retroareolar and axilla demonstrates a 0.5 x 0.3 x 0.3cm oval, cystic lesion at 3 o'clock, a 0.9 x 0.5 x 0.3cm oval, cystic cluster at 3 o'clock, a 1.5 x 1.3 x 0.8cm oval, cystic lesion at 3 o'clock and a 2.3 x 3.0 x 1.3cm nodes at the axilla, largest of two nodes. These results were verbally communicated with the patient and result sheet given to the patient on 10/29/18. ASSESSMENT: Benign, BI-RAD 2 RECOMMENDATION: Return to routine screening mammogram schedule for both breasts.
== END | disposition home or self-care (01) ==
LOC: RADUSWWP 08:49
PROVIDERS: ATTEND Family Medicine
DX: R92.8 Other abnormal and inconclusive findings on diagnostic imaging of breast (principal)

== ENCOUNTER 2019-05-09 10:01 | Emergency (ER) | payer OTHER ==
[2019-05-09 10:05] VITALS: BP 155/82; PULSE 78; RESP 18; TEMP 98
[2019-05-09] MEDS ORDERED: PROPARACAINE 0.5% OPHTH DROPS 15 ML BTL BOTH EYES STA (10:12)
[2019-05-09] MEDS ORDERED: ERYTHROMYCIN 5 MG/GM OPHTH OINT 3.5 GM TUBE BOTH EYES STA (10:14)
--- NOTE | 2019-05-09 10:15 | ED ---
Eye Problem HPI - General Chief complaint: Eye Problems Stated complaint: facial/eye burn Time Seen by Provider: 05/09/19 10:06 Source: patient, RN notes reviewed, old records reviewed Mode of arrival: ambulatory Limitations: no limitations - History of Present Illness Initial comments: This patient's a 58-year-old female, she presents emergency department today with chief complaint of left eye irritation after she dropped her hot curling iron on her left eye. Patient states that it does not feel like it hit the eyelid or the eyebrow her sister surrounding cheek but hit the actual cornea of the eye. She does wear glasses. She states that she has pain with opening her eye and pain with bright lights. Patient states she's had no other areas of burn. She reports that she has history of cataract repair surgery done by Dr. Mas. - Related Data Home Medications Medication Instructions Recorded Confirmed Hydrochlorothiazide 25 mg PO DAILY 05/19/16 05/09/19 Lisinopril [Prinivil] 5 mg PO DAILY 07/18/17 05/09/19 Levothyroxine Sodium [Synthroid] 25 mcg PO DAILY 05/09/19 05/09/19 glipiZIDE [Glucotrol] 5 mg PO BID 05/09/19 05/09/19 Previous Rx's Medication Instructions Recorded Acetaminophen-Codeine 300-30mg 1 tab PO Q6H PRN 3 Days #12 tablet 05/09/19 [Tylenol w/codeine #3] Allergies Allergy/AdvReac Type Severity Reaction Status Date / Time Sulfa (Sulfonamide Allergy Rash/Hives, Verified 05/09/19 10:35 Antibiotics) and Nausea Review of Systems ROS Statement: Those systems with pertinent positive or pertinent negative responses have been documented in the HPI. ROS Other: All systems not noted in ROS Statement are negative. Past Medical History Past Medical History: Hyperlipidemia, Hypertension Additional Past Medical History / Comment(s): . History of Any Multi-Drug Resistant Organisms: None Reported Past Surgical History: Hysterectomy, Tubal Ligation Additional Past Surgical History / Comment(s): LAP BAND , RIGHT SHOULDER, RIGHT ANKLE -PLATE AND SCREW- IRRITATING REMOVED FROM ANKLE, rt eye cataract Past Anesthesia/Blood Transfusion Reactions: No Reported Reaction Past Psychological History: No Psychological Hx Reported Smoking Status: Never smoker Past Alcohol Use History: None Reported Past Drug Use History: None Reported - Past Family History Father Family Medical History: Cancer Mother Family Medical History: Cancer General Exam - General Exam Comments Initial Comments: This is a 4-year-old female. Alert and oriented 3. Patient presents moderate discomfort. Limitations: no limitations General appearance: alert, in no apparent distress Head exam: Present: atraumatic, normocephalic, normal inspection Eye exam: Present: normal appearance, PERRL, EOMI, conjunctival injection, other (Left eye conjunctival injection. Patient has a large corneal abrasion, burn at the central pupil to the 3 o'clock position of the iris measuring approximately 40% of the iris.). Absent: scleral icterus, periorbital swelling (Patient has no areas of erythema or tenderness over the upper eyelid skin eyebrow or cheek.) ENT exam: Present: normal exam, mucous membranes moist Neck exam: Present: normal inspection. Absent: tenderness, meningismus, lymphadenopathy Respiratory exam: Present: normal lung sounds bilaterally. Absent: respiratory distress, wheezes, rales, rhonchi, stridor Cardiovascular Exam: Present: regular rate, normal rhythm, normal heart sounds. Absent: systolic murmur, diastolic murmur, rubs, gallop, clicks GI/Abdominal exam: Present: soft, normal bowel sounds. Absent: distended, tenderness, guarding, rebound, rigid Extremities exam: Present: normal inspection, full ROM, normal capillary refill. Absent: tenderness, pedal edema, joint swelling, calf tenderness Back exam: Present: normal inspection Neurological exam: Present: alert, oriented X3, CN II-XII intact Psychiatric exam: Present: normal affect, normal mood Course Vital Signs 05/09/19 10:02 Temperature 98 F Pulse Rate 78 Respiratory 18 Rate Blood Pressure 155/82 O2 Sat by Pulse 97 Oximetry Medical Decision Making - Medical Decision Making 4-year-old female presents today for evaluation for left eye pain after a curling iron hit the left eye and burned. She has a significant corneal abrasion/burn, measuring approximately 40% of the iris area. It extends from the pupil to the 3 o'clock position. Patient's visual acuity is 20/40 in the left eye and 20/30 on the right eye. She wears glasses and contacts. She was given updated tetanus shot, and erythromycin ointment. Patient was advised to follow-up with Dr. Regalado. Multiple attempts were made to contact Dr. Mas but he is unable to return the call. Patient is anxious for discharge, and discussed that I will call the Patient changes in the care per Dr. Mas and for her to follow-up with him tomorrow. All questions were answered return primary's were discussed. Discharge and Patient with a short course of pain medicine. Disposition Clinical Impression: Corneal burn Disposition: HOME SELF-CARE Condition: Good Instructions (If sedation given, give patient instructions): Corneal Abrasion (ED) Additional Instructions: Please use medication as discussed. Please follow up with family doctor if symptoms have not improved over the next two days. Please return to the emergency room if your symptoms increase or worsen or for any other concerns. Prescriptions: Acetaminophen-Codeine 300-30mg [Tylenol w/codeine #3] 1 tab PO Q6H PRN 3 Days #12 tablet PRN Reason: Pain Is patient prescribed a controlled substance at d/c from ED?: Yes Referrals: Sophia Hinton MD [Primary Care Provider] - 1-2 days Time of Disposition: 11:42
[2019-05-09] MEDS ORDERED: DIPH,PERTUS(ACELL)TETVAC-LF 0.5 ML VIAL IM ONE (10:46)
[2019-05-09] MEDS ORDERED: ACET/COD 300 MG/30 MG STARTER PACK 6 TAB BTL PO STA (11:42)
== END 2019-05-09 12:11 | disposition home or self-care (01) ==
LOC: EC 10:01
DX: T26.12XA Burn of cornea and conjunctival sac, left eye, initial encounter (principal); Z23 Encounter for immunization; I10 Essential (primary) hypertension; Z79.890 Hormone replacement therapy; Z79.84 Long term (current) use of oral hypoglycemic drugs; Z79.899 Other long term (current) drug therapy; Z88.2 Allergy status to sulfonamides
CPT/HCPCS: 90471; 90715; 99283

== ENCOUNTER 2019-06-08 07:53 | Emergency (ER) | payer OTHER ==
[2019-06-08 07:58] VITALS: TEMP 98.2
[2019-06-08] MEDS ORDERED: SODIUM CHLORIDE 0.9% 1,000 ML IV STA (08:04)
[2019-06-08] MEDS ORDERED: ONDANSETRON 4 MG/2 ML VIAL IVP STA (08:19)
--- NOTE | 2019-06-08 08:23 | ED ---
General Adult HPI - General Chief complaint: Recheck/Abnormal Lab/Rx Stated complaint: High sugar, swelling in face Time Seen by Provider: 06/08/19 08:03 Source: patient Mode of arrival: wheelchair Limitations: no limitations - History of Present Illness Initial comments: Dictation was produced using [employer] dictation software. please excuse any gra mmatical, word or spelling errors. Chief Complaint: 58-year-old female past medical history of diabetes mellitus dyslipidemia hypertension presents with nausea, generalized weakness History of Present Illness: A 58-year-old female for the last 4 days patient has been dealing with painful neck mass in the left lateral neck. She states that 4 days ago her pain initially began as her pain. She did see her primary care doctor who is patient on Keflex and steroid burst dosing. She states that yesterday she's been feeling nauseous, generally weak and having lack of appetite. Patient also states that pain in her left lateral neck is been persistent. She does not report this to be getting worse however is not getting any better. Patient denies any constitutional symptoms. She is reports that pain is dull and worse with swallowing. Patient is not having trouble breathing and she does not have any trouble swallowing. Denies any ear pain. Patient also concerned about her blood glucose being elevated. Patient does take antihyperglycemic medications. The ROS documented in this emergency department record has been reviewed and confirmed by me. Those systems with pertinent positive or negative responses have been documented in the HPI. All other systems are other negative and/or noncontributory. PHYSICAL EXAM: General Impression: Alert and oriented x3, not in acute distress HEENT: Normocephalic atraumatic, extra-ocular movements intact, pupils equal and reactive to light bilaterally, mucous membranes moist, 1 x 1 cm palpable mass just inferior to the angle of the mandible, no overlying skin erythema, swollen left ear Cardiovascular: Heart regular rate and rhythm, S1&S2 audible, no murmurs, rubs or gallops Chest: Lungs clear to auscultation bilaterally, no rhonchi, no wheeze, no rales Abdomen: Bowel sounds present, abdomen soft, non-tender, non-distended, no organomegaly Musculoskeletal: Pulses present and equal in all extremities, no peripheral edema Motor: no focal deficits noted Neurological: CN II-XII grossly intact, no focal motor or sensory deficits noted Skin: Intact with no visualized rashes Psych: Normal affect and mood ED course: 58 y Old female presents with chief complaint of generalized weakness and nausea and poor appetite after starting antibiotics and steroid medications. Upon arrival are within acceptable limits. Patient patient be treated for possible skin versus ear infection by primary care physician. Laboratory evaluation obtained and found to be unremarkable. Patient treated with Toradol, Zofran, intravenous fluids. She is evaluated at bedside found in stable medical condition. She reports significant improvement of her symptoms. Discussed patient that her symptoms are likely secondary to status adverse effects from steroid. She is advised to continue taking the Keflex however patient was left the option to continue the steroids or to stop them. Patient is clear for discharge. Temporalis discussed. Advised to follow-up with primary care physician. - Related Data Home Medications Medication Instructions Recorded Confirmed Hydrochlorothiazide 25 mg PO DAILY 05/19/16 05/09/19 Lisinopril [Prinivil] 5 mg PO DAILY 07/18/17 05/09/19 Levothyroxine Sodium [Synthroid] 25 mcg PO DAILY 05/09/19 05/09/19 glipiZIDE [Glucotrol] 5 mg PO BID 05/09/19 05/09/19 Previous Rx's Medication Instructions Recorded Acetaminophen-Codeine 300-30mg 1 tab PO Q6H PRN 3 Days #12 tablet 05/09/19 [Tylenol w/codeine #3] Allergies Allergy/AdvReac Type Severity Reaction Status Date / Time Sulfa (Sulfonamide Allergy Rash/Hives, Verified 05/09/19 10:35 Antibiotics) and Nausea Review of Systems ROS Statement: Those systems with pertinent positive or pertinent negative responses have been documented in the HPI. ROS Other: All systems not noted in ROS Statement are negative. Past Medical History Past Medical History: Diabetes Mellitus, Hyperlipidemia, Hypertension Additional Past Medical History / Comment(s): . History of Any Multi-Drug Resistant Organisms: None Reported Past Surgical History: Hysterectomy, Tubal Ligation Additional Past Surgical History / Comment(s): LAP BAND , RIGHT SHOULDER, RIGHT ANKLE -PLATE AND SCREW- IRRITATING REMOVED FROM ANKLE, rt eye cataract Past Anesthesia/Blood Transfusion Reactions: No Reported Reaction Past Psychological History: No Psychological Hx Reported Smoking Status: Never smoker Past Alcohol Use History: None Reported Past Drug Use History: None Reported - Past Family History Father Family Medical History: Cancer Mother Family Medical History: Cancer General Exam Limitations: no limitations Course Vital Signs 06/08/19 07:54 Temperature 98.2 F Pulse Rate 99 Respiratory 16 Rate Blood Pressure 146/84 O2 Sat by Pulse 96 Oximetry Medical Decision Making - Lab Data Result diagrams: 06/08/19 08:34 06/08/19 08:34 Lab Results 06/08/19 06/08/19 06/08/19 Range/Units 08:33 08:34 08:34 WBC 9.4 (3.8-10.6) k/uL RBC 4.62 (3.80-5.40) m/uL Hgb 13.8 (11.4-16.0) gm/dL Hct 42.5 (34.0-46.0) % MCV 92.0 (80.0-100.0) fL MCH 29.8 (25.0-35.0) pg MCHC 32.4 (31.0-37.0) g/dL RDW 12.5 (11.5-15.5) % Plt Count 288 (150-450) k/uL Neutrophils % 81 % Lymphocytes % 11 % Monocytes % 5 % Eosinophils % 1 % Basophils % 1 % Neutrophils # 7.7 (1.3-7.7) k/uL Lymphocytes # 1.0 (1.0-4.8) k/uL Monocytes # 0.4 (0-1.0) k/uL Eosinophils # 0.1 (0-0.7) k/uL Basophils # 0.1 (0-0.2) k/uL Sodium 138 (137-145) mmol/L Potassium 4.3 (3.5-5.1) mmol/L Chloride 104 (98-107) mmol/L Carbon Dioxide 25 (22-30) mmol/L Anion Gap 9 mmol/L BUN 18 H (7-17) mg/dL Creatinine 0.58 (0.52-1.04) mg/dL Est GFR (CKD-EPI)AfAm >90 (>60 ml/min/1.73 sqM) Est GFR (CKD-EPI)NonAf >90 (>60 ml/min/1.73 sqM) Glucose 163 H (74-99) mg/dL POC Glucose (mg/dL) 173 H (75-99) mg/dL POC Glu [employer] Operator ID Rosa Glez Calcium 8.8 (8.4-10.2) mg/dL Disposition Clinical Impression: Generalized weakness Disposition: HOME SELF-CARE Condition: Good Instructions (If sedation given, give patient instructions): Lymphadenopathy (ED) Is patient prescribed a controlled substance at d/c from ED?: No Referrals: Sophia Hinton MD [Primary Care Provider] - 1-2 days Time of Disposition: 10:17
[2019-06-08 08:35] LABS: Glucose,Whole Blood 173 mg/dL (75-99)
[2019-06-08 09:00] LABS: Basophils # (A) 0.1 k/uL (0-0.2); Basophils % (A) 1 %; Eosinophils # (A) 0.1 k/uL (0-0.7); Eosinophils % (A) 1 %; HCT 42.5 % (34.0-46.0); HGB 13.8 gm/dL (11.4-16.0); Lymphocytes % (A) 11 %; MCH 29.8 pg (25.0-35.0); MCHC 32.4 g/dL (31.0-37.0); Monocytes # (A) 0.4 k/uL (0-1.0); Monocytes % (A) 5 %; Neutrophils # (A) 7.7 k/uL (1.3-7.7); Neutrophils % (A) 81 %; Platelet Count 288 k/uL (150-450); RBC 4.62 m/uL (3.80-5.40); RDW 12.5 % (11.5-15.5); WBC 9.4 k/uL (3.8-10.6)
[2019-06-08 09:08] LABS: African American GFR (CKD) >90 (>60 ml/min/1.73 sqM); Anion Gap 9 mmol/L; Blood Urea Nitrogen 18 mg/dL (7-17); Calcium 8.8 mg/dL (8.4-10.2); Carbon Dioxide 25 mmol/L (22-30); Chloride 104 mmol/L (98-107); Glucose 163 mg/dL (74-99); Non-African American GFR(CKD) >90 (>60 ml/min/1.73 sqM); Potassium 4.3 mmol/L (3.5-5.1); Sodium 138 mmol/L (137-145)
[2019-06-08] MEDS ORDERED: KETOROLAC 30 MG/ML 1 ML VIAL IVP STA (09:47)
[2019-06-08 10:32] VITALS: BP 164/85; PULSE 95; RESP 18
== END 2019-06-08 10:30 | disposition home or self-care (01) ==
LOC: EC 07:53
DX: R53.1 Weakness (principal); R22.1 Localized swelling, mass and lump, neck; R11.0 Nausea; M54.2 Cervicalgia; R63.0 Anorexia; E11.9 Type 2 diabetes mellitus without complications; I10 Essential (primary) hypertension; Z88.2 Allergy status to sulfonamides; Z79.84 Long term (current) use of oral hypoglycemic drugs; Z79.890 Hormone replacement therapy; Z79.899 Other long term (current) drug therapy
CPT/HCPCS: 99284; 96374; 96375; 96361; 36415; 80048; 85025; J2405; J1885

== ENCOUNTER 2019-06-13 09:51 | Emergency (ER) | payer OTHER ==
[2019-06-13 10:00] VITALS: RESP 18; TEMP 97.9
--- NOTE | 2019-06-13 10:36 | ED ---
Recheck HPI - General Chief Complaint: Recheck/Abnormal Lab/Rx Stated Complaint: Ear pain Time Seen by Provider: 06/13/19 10:06 Source: patient Mode of arrival: ambulatory Limitations: no limitations - History of Present Illness Initial Comments: Patient is a 58-year-old female presenting with left ear pain has been increasing over the past few days. Patient has been in the ER last week for complaints of left sided facial swelling as well as left ears swelling. Patient has been seen by her PCP and has been on Keflex and steroids for this. Patient has been unable to steroids secondary to side effects. She still has 1 more day of the Keflex. However patient presents today with increasing left ear pain as well as dizziness. She is scheduled to have an ultrasound to mild looking for blocked lymph nodes. Patient is hoping to have some kind of imaging performed today due to increasing symptoms. Patient denies fever, chills, nausea, vomitin g. She has had a decreased appetite. Patient states the swelling has improved however the pain is getting worse. Patient has no other complaints at this time. Upon arrival to the ER, her vital signs are stable. - Related Data Home Medications Medication Instructions Recorded Confirmed Hydrochlorothiazide 25 mg PO DAILY 05/19/16 06/13/19 Lisinopril [Prinivil] 5 mg PO DAILY 07/18/17 06/13/19 Levothyroxine Sodium [Synthroid] 25 mcg PO DAILY 05/09/19 06/13/19 Cephalexin [Keflex] 250 mg PO TID 06/13/19 06/13/19 Ergocalciferol [Vitamin D2 50,000 units PO FR 06/13/19 06/13/19 (DRISDOL)] Rosuvastatin Calcium 10 mg PO MOFR 06/13/19 06/13/19 glipiZIDE XL [Glucotrol XL] 5 mg PO DAILY 06/13/19 06/13/19 Previous Rx's Medication Instructions Recorded Amoxicillin/Potassium Clav 1 tab PO BID 7 Days #14 tab 06/13/19 [Augmentin 875-125 Tablet] Ofloxacin 0.3% Otic Soln [Floxin 5 drops LEFT EAR BID 5 Days #1 06/13/19 0.3% Otic Soln] bottle Allergies Allergy/AdvReac Type Severity Reaction Status Date / Time Sulfa (Sulfonamide Allergy Rash/Hives, Verified 06/13/19 10:35 Antibiotics) and Nausea Review of Systems ROS Statement: Those systems with pertinent positive or pertinent negative responses have been documented in the HPI. ROS Other: All systems not noted in ROS Statement are negative. Past Medical History Past Medical History: Diabetes Mellitus, Hyperlipidemia, Hypertension Additional Past Medical History / Comment(s): . History of Any Multi-Drug Resistant Organisms: None Reported Past Surgical History: Hysterectomy, Tubal Ligation Additional Past Surgical History / Comment(s): LAP BAND , RIGHT SHOULDER, RIGHT ANKLE -PLATE AND SCREW- IRRITATING REMOVED FROM ANKLE, bilateral eye cataract Past Anesthesia/Blood Transfusion Reactions: No Reported Reaction Past Psychological History: No Psychological Hx Reported Smoking Status: Never smoker Past Alcohol Use History: None Reported Past Drug Use History: None Reported - Past Family History Father Family Medical History: Cancer Mother Family Medical History: Cancer General Exam - General Exam Comments Initial Comments: GENERAL: Well-appearing, well-nourished and in no acute distress. HEAD: Atraumatic, normocephalic. EYES: Pupils equal round and reactive to light, extraocular movements intact, sclera anicteric, conjunctiva are normal. ENT: Right TM and EAC is normal. Left TM is not visualized due to serum impaction, EAC is erythematous, edematous, with white/yellow drainage. Nares patent, oropharynx clear without exudates. Moist mucous membranes. NECK: Mild soft tissue swelling along the left mandible and anterior left ear. No pain with palpation. Normal range of motion, supple without lymphadenopathy or JVD. LUNGS: Breath sounds clear to auscultation bilaterally and equal. No wheezes rales or rhonchi. HEART: Regular rate and rhythm without murmurs, rubs or gallops. ABDOMEN: Soft, nontender, normoactive bowel sounds. No guarding, no rebound. No masses appreciated. NEUROLOGICAL: Cranial nerves II through XII grossly intact. Normal speech, normal gait. PSYCH: Normal mood, normal affect. SKIN: Warm, Dry, normal turgor, no rashes or lesions noted. Limitations: no limitations Course Vital Signs 06/13/19 06/13/19 09:56 14:02 Temperature 97.9 F Pulse Rate 99 76 Respiratory 18 18 Rate Blood Pressure 157/97 120/74 O2 Sat by Pulse 95 99 Oximetry Medical Decision Making - Medical Decision Making Patient is 58-year-old female presenting with left ear pain and swelling. Patient sent by her PCP. Vital signs are stable. Patient has otitis externa, left TM is not visualized at her serum impaction. CT of the neck shows nonspe cific prominent left greater than right neck lymph nodes. No other acute findings seen. I discussed these findings with the patient. Patient will be switched to Augmentin for possible otitis media as well as ofloxacin eardrops for otitis externa. Patient will follow up with his PCP. She is in agreement with this plan of care. Return parameters were discussed with the patient she verbalized understanding. Patient still for discharge at this time. Case discussed with Dr. Smith. - Lab Data Result diagrams: 06/13/19 10:55 06/13/19 10:55 Lab Results 06/13/19 06/13/19 Range/Units 10:55 10:55 WBC 9.5 (3.8-10.6) k/uL RBC 5.19 (3.80-5.40) m/uL Hgb 16.3 H (11.4-16.0) gm/dL Hct 47.2 H (34.0-46.0) % MCV 91.0 (80.0-100.0) fL MCH 31.5 (25.0-35.0) pg MCHC 34.6 (31.0-37.0) g/dL RDW 12.7 (11.5-15.5) % Plt Count 304 (150-450) k/uL Neutrophils % 71 % Lymphocytes % 22 % Monocytes % 4 % Eosinophils % 1 % Basophils % 0 % Neutrophils # 6.8 (1.3-7.7) k/uL Lymphocytes # 2.0 (1.0-4.8) k/uL Monocytes # 0.4 (0-1.0) k/uL Eosinophils # 0.1 (0-0.7) k/uL Basophils # 0.0 (0-0.2) k/uL Sodium 136 L (137-145) mmol/L Potassium 5.8 H (3.5-5.1) mmol/L Chloride 102 (98-107) mmol/L Carbon Dioxide 22 (22-30) mmol/L Anion Gap 12 mmol/L BUN 21 H (7-17) mg/dL Creatinine 0.58 (0.52-1.04) mg/dL Est GFR (CKD-EPI)AfAm >90 (>60 ml/min/1.73 sqM) Est GFR (CKD-EPI)NonAf >90 (>60 ml/min/1.73 sqM) Glucose 159 H (74-99) mg/dL Calcium 9.6 (8.4-10.2) mg/dL Total Bilirubin 1.3 (0.2-1.3) mg/dL AST 51 H (14-36) U/L ALT 35 H (4-34) U/L Alkaline Phosphatase 69 (38-126) U/L Total Protein 8.4 H (6.3-8.2) g/dL Albumin 4.5 (3.5-5.0) g/dL Disposition Clinical Impression: Left otitis media, Left otitis externa, Left ear pain, Dizziness Disposition: HOME SELF-CARE Condition: Stable Instructions (If sedation given, give patient instructions): Otitis Externa (ED) Additional Instructions: Please return to the Emergency Department if symptoms worsen or any other concerns. Follow up with her PCP as discussed. Take antibiotics and eardrops as prescribed. Continue with Tylenol or Motrin for symptom relief Trial of Claritin or Zyrtec. Prescriptions: Amoxicillin/Potassium Clav [Augmentin 875-125 Tablet] 1 tab PO BID 7 Days #14 tab Ofloxacin 0.3% Otic Soln [Floxin 0.3% Otic Soln] 5 drops LEFT EAR BID 5 Days #1 bottle Is patient prescribed a controlled substance at d/c from ED?: No Referrals: Sophia Hinton MD [Primary Care Provider] - 1-2 days Rob Alicia DO [Doctor of Osteopathic Medicine] - 1-2 days
[2019-06-13] MEDS ORDERED: KETOROLAC 30 MG/ML 1 ML VIAL IVP STA (11:43)
[2019-06-13 11:57] LABS: ALT 35 U/L (4-34); AST 51 U/L (14-36); African American GFR (CKD) >90 (>60 ml/min/1.73 sqM); Albumin 4.5 g/dL (3.5-5.0); Alkaline Phosphatase 69 U/L (38-126); Anion Gap 12 mmol/L; Blood Urea Nitrogen 21 mg/dL (7-17); Calcium 9.6 mg/dL (8.4-10.2); Carbon Dioxide 22 mmol/L (22-30); Chloride 102 mmol/L (98-107); Glucose 159 mg/dL (74-99); Non-African American GFR(CKD) >90 (>60 ml/min/1.73 sqM); Sodium 136 mmol/L (137-145); Total Bilirubin 1.3 mg/dL (0.2-1.3); Total Protein 8.4 g/dL (6.3-8.2)
[2019-06-13 12:11] LABS: Potassium 5.8 mmol/L (3.5-5.1)
[2019-06-13 12:28] LABS: Basophils % (A) 0 %; Eosinophils # (A) 0.1 k/uL (0-0.7); Eosinophils % (A) 1 %; HCT 47.2 % (34.0-46.0); HGB 16.3 gm/dL (11.4-16.0); Lymphocytes % (A) 22 %; MCH 31.5 pg (25.0-35.0); MCHC 34.6 g/dL (31.0-37.0); Mean Platelet Volume 6.9; Monocytes # (A) 0.4 k/uL (0-1.0); Monocytes % (A) 4 %; Neutrophils # (A) 6.8 k/uL (1.3-7.7); Neutrophils % (A) 71 %; Platelet Count 304 k/uL (150-450); RBC 5.19 m/uL (3.80-5.40); RDW 12.7 % (11.5-15.5); WBC 9.5 k/uL (3.8-10.6)
--- NOTE | 2019-06-13 13:07 | CT ---
EXAMINATION TYPE: CT soft tissue neck w con DATE OF EXAM: 06/13/2019 HISTORY: Left ear pain and swelling. Dizziness. COMPARISON: NONE CT DLP: 480.1 mGycm. Automated Exposure Control for Dose Reduction was Utilized. TECHNIQUE: CT scan of the neck is performed with IV Contrast, patient injected with 100 mL of Isovue 300, axial images are obtained, coronal and sagittal reformatted images are reviewed. FINDINGS: Airway: Subcentimeter suspected roughly 6 mm left thyroid nodule midpole level coronal image 44. Ther e is some narrowing of the nasopharyngeal and oropharyngeal airways due to hard palate prominence, co rrelate clinically to exclude tonsillitis. Some prominence of the hypopharyngeal airway with diminish ed soft tissue fullness left piriform sinus along with soft tissue filling the vallecula. No definiti ve focal mass. Advise ENT referral and direct visualization to exclude based on degree of clinical jasmine spicion. Parotid/submandibular glands: No gross abnormality seen. Carotid/Vascular Structures: Mild to moderate calcified plaque bilateral carotid bulbs extending into proximal internal carotid arteries. Osseous Structures: Straightening of cervical spine with multilevel spondylolisthesis along with spur ring and disc space narrowing most prominent C5-C6 and C6-C7 levels. Posterior disc herniations and s pur disc complexes efface the anterior thecal sac at both levels noted. Other: Prominent but subcentimeter lymph nodes throughout the neck bilaterally. No definitive greater than 1 cm adenopathy. Lymph nodes slightly more prominent and numerous in the left neck versus the r ight side. For reference 12 x 7 mm left supraclavicular lymph node at level of thyroid gland measures 36 noted. No suspicious opacification mastoid air cells. Middle ear ossicles show no surrounding soft tissue de nsity on the left. IMPRESSION: Nonspecific prominent but subcentimeter left greater than right neck lymph nodes. Source of acute left ear pain and swelling not clearly seen.
[2019-06-13 14:04] VITALS: BP 120/74; PULSE 76
== END 2019-06-13 14:02 | disposition home or self-care (01) ==
LOC: EC 09:51
DX: H66.92 Otitis media, unspecified, left ear (principal); H60.92 Unspecified otitis externa, left ear; R42 Dizziness and giddiness; E11.9 Type 2 diabetes mellitus without complications; I10 Essential (primary) hypertension; E78.5 Hyperlipidemia, unspecified; Z79.890 Hormone replacement therapy; Z79.899 Other long term (current) drug therapy; Z88.2 Allergy status to sulfonamides
CPT/HCPCS: 36415; 80053; 85025; 70491; 99283; 96374; J1885; Q9967

== ENCOUNTER → 2019-06-14 | Outpatient (CLI) | payer OTHER ==
--- NOTE | 2019-06-14 09:33 | US ---
EXAMINATION TYPE: US thyroid st tissue head/neck DATE OF EXAM: 06/14/2019 COMPARISON: CT yesterday CLINICAL HISTORY: R59.0 Localized enlarged lymph nodes. Bilateral neck scanned. Largest lymph node noted on left measuring 1.3 x 0.6 x 1.0cm Images saved show some prominent benign-appearing lymph nodes in the left neck in the area of concern submandibular region. IMPRESSION: As above. No suspicious adenopathy on CT yesterday or ultrasound images today. Consider further imaging workup with symptoms do not resolve or worsen.
== END | disposition home or self-care (01) ==
LOC: RADUSWWP 09:01
PROVIDERS: ATTEND Family Medicine
DX: R59.0 Localized enlarged lymph nodes (principal)
CPT/HCPCS: 76536

== ENCOUNTER → 2020-02-09 | Outpatient (CLI) | payer OTHER ==
--- NOTE | 2020-02-13 08:04 | MM ---
Reason for exam: screening (asymptomatic). Last mammogram was performed 1 year and 4 months ago. History: Patient is postmenopausal. Benign MG stereo VAD BX LT of the left breast, February 21, 2015. Physical Findings: A clinical breast exam by your physician is recommended on an annual basis and results should be correlated with mammographic findings. MG 3D Screening Mammo W/Cad Bilateral CC, MLO, and XCCL view(s) were taken. Prior study comparison: October 21, 2018, bilateral MG 3d screening mammo w/cad. September 16, 2017, bilateral MG 3d screening mammo w/cad. The breast tissue is heterogeneously dense. This may lower the sensitivity of mammography. Stable calcifications left upper outer quadrant. Previous mammotome biopsy in the left breast. No significant changes when compared with prior studies. ASSESSMENT: Benign, BI-RAD 2 RECOMMENDATION: Routine screening mammogram of both breasts in 1 year.
== END | disposition home or self-care (01) ==
LOC: RADMAMWWP 07:02
PROVIDERS: ATTEND Family Medicine
DX: Z12.31 Encounter for screening mammogram for malignant neoplasm of breast (principal)
CPT/HCPCS: 77063; 77067

== ENCOUNTER → 2021-02-11 | Outpatient (CLI) | payer OTHER ==
--- NOTE | 2021-02-11 12:02 | BD ---
EXAMINATION TYPE: Axial Bone Density DATE OF EXAM: 02/11/2021 COMPARISON: 10/21/2018 CLINICAL HISTORY: Height: 65.5 IN Weight: 277 LBS FRAX RISK QUESTIONS: History of Fracture in Adulthood: RT WRIST AGE 54 Secondary Osteoporosis: 3. Menopause before 45: PARTIAL HYST AGE 40 RISK FACTORS HISTORY OF: History of Wrist Fracture: RT WRIST AGE 54 Active: YES Postmenopausal woman: PARTIAL HYST AGE 40 MEDICATIONS: Thyroid Medications: YES Which medication: Synthroid How Lon YEARS Additional Medications: VIT D ONCE PER WEEK, SYNTHROID, GLIPIZIDE, WATER PILL, CHOLESTEROL MEDS, ROMIE PENTIN, EXAM MEASUREMENTS: Bone mineral densitometry was performed using the [employer]. Bone mineral density as measured about the Lumbar spine is: ----- L1-L4(G/cm2): 1.446 T Score Values are as follows: ----- L2: 2.3 ----- L3: 1.4 ----- L4: 2.1 ----- L1-L4: 2.3 Bone mineral density has: Decreased -0.5% since study of: 10/21/2018 Bone mineral density about the R hip (g/cm2): 1.046 Bone mineral density about the L hip (g/cm2): 1.090 T Score values are as follows: -----R Neck: 0.4 -----L Neck: 0.1 -----R Total: 1.3 -----L Total: 1.7 Bone mineral density has: Increased 0.1% since study of: 10/21/2018 IMPRESSION: No evidence for osteoporosis or osteopenia at this time. NOTE: T-SCORE=SD OF THE YOUNG ADULT MEAN.
--- NOTE | 2021-02-13 13:40 | MM ---
Reason for exam: screening (asymptomatic). Last mammogram was performed 1 year ago. History: Patient is postmenopausal. Benign MG stereo VAD BX LT of the left breast, February 21, 2015. Physical Findings: A clinical breast exam by your physician is recommended on an annual basis and results should be correlated with mammographic findings. MG 3D Screening Mammo W/Cad Bilateral CC and MLO view(s) were taken. Prior study comparison: February 09, 2020, bilateral MG 3d screening mammo w/cad. Stable diffuse calcifications. Previous mammotome biopsy in the left breast. There is no discrete abnormality. No significant changes when compared with prior studies. ASSESSMENT: Benign, BI-RAD 2 RECOMMENDATION: Routine screening mammogram of both breasts in 1 year.
== END | disposition home or self-care (01) ==
LOC: RADMAMWWP 08:16
PROVIDERS: ATTEND Family Medicine
DX: Z12.31 Encounter for screening mammogram for malignant neoplasm of breast (principal); Z78.0 Asymptomatic menopausal state
CPT/HCPCS: 77063; 77067; 77080

== ENCOUNTER → 2021-02-20 | Outpatient (CLI) | payer OTHER ==
--- NOTE | 2021-02-20 13:56 | P.PAINCN ---
History of Present Illness - Reason for Consult Consult date: 02/20/21 - History of Present Illness This is 60 years old female with a chronic history of severe neck pain, the pain started and 5 months ago she denies any initiating event, the intensity of the pain increases over time and currently is interfering with activities of daily livings,, shoots down home exercise and she is taking pain medication, and she continued to have severe pain she is currently on Charlotte 7.5/325 every 6 hours when necessary and Neurontin 300 mg twice a day, and these medication does not control her pain appropriately, she patient denies any change in bowel movement or urination she denies any fever or night sweats. She denies any motor or sensory deficit Past Medical History Past Medical History: Diabetes Mellitus, Hyperlipidemia, Hypertension Additional Past Medical History / Comment(s): . History of Any Multi-Drug Resistant Organisms: None Reported Past Surgical History: Bariatric Surgery, Hysterectomy, Orthopedic Surgery, Tubal Ligation Additional Past Surgical History / Comment(s): LAP BAND , liu SHOULDER rotator cuff repair, RIGHT ANKLE -PLATE AND SCREW- IRRITATING REMOVED FROM ANKLE, bilateral eye cataract Past Anesthesia/Blood Transfusion Reactions: No Reported Reaction Smoking Status: Never smoker - Past Family History Father Family Medical History: Cancer Mother Family Medical History: Cancer Medications and Allergies Home Medications Medication Instructions Recorded Confirmed Type hydroCHLOROthiazide 25 mg PO DAILY 05/19/16 02/14/21 History lisinopriL [Prinivil] 5 mg PO DAILY 07/18/17 02/14/21 History Levothyroxine Sodium [Synthroid] 25 mcg PO DAILY 05/09/19 02/14/21 History Ergocalciferol [Vitamin D2 50,000 units PO FR 06/13/19 02/14/21 History (DRISDOL)] glipiZIDE XL [Glucotrol XL] 5 mg PO DAILY 06/13/19 02/14/21 History Ezetimibe [Zetia] 10 mg PO HS 02/14/21 02/14/21 History Gabapentin 300 mg PO BID 02/14/21 02/14/21 History HYDROcodone/APAP 7.5-325MG [Charlotte 1 tab PO DAILY PRN 02/14/21 02/14/21 History 7.5-325] Allergies Allergy/AdvReac Type Severity Reaction Status Date / Time Sulfa (Sulfonamide Allergy Rash/Hives, Verified 02/14/21 13:21 Antibiotics) and Nausea Physical Exam Physical Examinations : -Constitutiona : Cooperative , not in acute distress . -HEENT : nech : supple , no Lymphadenopathy , normal thyroid size . : eyes : no ptosis , no icterus, no photophobia . - neurologic : Cranial nerve II to XII intact , no focal neurological deffecit . -psychatric : alert , oriented X 3 , appropriate affect , intact judgment and insight . -Lymphatic : no Lymphadenopathy . - musculoskeltal : Cervical Spine motor stregnth in the deltoid and biceps, normal right side , normal Left side motor stregnth biceps and the wrist extensors normal right side ,normal left side . motor stregnth in the triceps muscle . normal Right side , normal Left side deep tendon reflexes normal at the biceps , normal at Brachioradialis , normal at triceps. cervical facet loading test: Positive Bilaterally Spurling test= positive Right , positive left. Neck distraction test= positive Right , positive left. Javier sign= positive right, positive left . Lumber spine moter stegnth lower extremities ,thigh and legs 5/5 Right side , 5/5 Left side Results Comments: MRI of the cervical spine= multilevel cervical degenerative disc disease and multilevel cervical facet arthropathy, cervical spinal stenosis at C5 6 and mild foraminal stenosis at C3 4 and C4 5 Assessment and Plan Plan: Assessment and plan=1-cervical degenerative disc disease. 2-cervical spondylosis with cervical facet arthropathy. 3-cervical spinal stenosis Patient could benefit from cervical epidural steroid injections under fluoroscopy guidance at C7-T1 Time with Patient: Greater than 30 PQRS Measure Charge Sheet Measure #130: Documentation of Current Meds in Medical Chart: Patient's medications documented in chart Measure #226: Tobacco Use: Screen & Cessation Intervention: Pt not a tobacco user Measure #111: Pneumonia Vaccination: Pneumococcal vaccine NOT administered or previously given Measure #47: Advance Care Plan: Advance care planning discussed & documented, pt chose/unable to give Measure #412: Opioid Treatment Agreement: No documentation of signed opioid treatment agreement Measure #408: Opioid Therapy Follow-up Evaluation: Patient had NO f/u eval minimum every 3 months during opioid therapy Measure #317: Preventitive Care & Scrn High Bld Press & F/U: Pre-hypertensive or hypertensive BP documented, pt will f/u with PCP Measure #128: Body Mass Index (BMI) Screening & Follow-up: BMI documented ABOVE normal parameters - f/u documented Measure #131: Pain Assessment & Follow-up: Pain positive & plan documented, Follow-up scheduled Measure #431: Unhealthy Alcohol Use Preventative Care & Scrn: Patient not identified as an unhealthy alcohol user PQRS Narrative: Smoking Status Never smoker Pain Intensity [Neck] 7 Scale Used Numeric (1 - 10) Hx Alcohol Use (MH) No Home Medications: Ambulatory Orders hydroCHLOROthiazide 25 mg PO DAILY 05/19/16 lisinopriL [Prinivil] 5 mg PO DAILY 07/18/17 Levothyroxine Sodium [Synthroid] 25 mcg PO DAILY 05/09/19 Ergocalciferol [Vitamin D2 (DRISDOL)] 50,000 units PO FR 06/13/19 glipiZIDE XL [Glucotrol XL] 5 mg PO DAILY 06/13/19 Ezetimibe [Zetia] 10 mg PO HS 02/14/21 Gabapentin 300 mg PO BID 02/14/21 HYDROcodone/APAP 7.5-325MG [Charlotte 7.5-325] 1 tab PO DAILY PRN 02/14/21
[2021-02-20 14:26] VITALS: BP 144/80; PULSE 90; RESP 18; TEMP 98
== END ==
LOC: PNWHC3 13:03
PROVIDERS: ATTEND Specialist
DX: M50.30 Other cervical disc degeneration, unspecified cervical region (principal); M47.812 Spondylosis without myelopathy or radiculopathy, cervical region; M48.02 Spinal stenosis, cervical region; E11.9 Type 2 diabetes mellitus without complications; E78.5 Hyperlipidemia, unspecified; I10 Essential (primary) hypertension; Z79.84 Long term (current) use of oral hypoglycemic drugs; Z79.899 Other long term (current) drug therapy; Z88.2 Allergy status to sulfonamides
CPT/HCPCS: 99211

== ENCOUNTER 2021-03-19 06:33 | Day surgery (SDC) | payer OTHER ==
[2021-03-18 09:13] VITALS: BMI 42.5
[2021-03-19 07:09] VITALS: TEMP 97
[2021-03-19] MEDS ORDERED: LACTATED RINGERS 1,000 ML IV ONE (07:17)
[2021-03-19 07:18] LABS: Glucose,Whole Blood 147 mg/dL (75-99)
[2021-03-19] MEDS ORDERED: IOPAMIDOL M200 10 ML VIAL ONE (07:19)
[2021-03-19] MEDS ORDERED: fentaNYL (PF) 50 MCG/ML 2 ML AMP ONE (07:19)
[2021-03-19] MEDS ORDERED: MIDAZOLAM 2 MG/2 ML VIAL ONE (07:19)
[2021-03-19] MEDS ORDERED: DEXAMETHASONE SOD PHOSPHATE 10 MG/ML 1 ML VIAL ONE (07:19)
--- NOTE | 2021-03-19 07:58 | P.PCN ---
Date of Procedure: 03/19/21 Description of Procedure: re- and Post-operative Diagnosis: Cervical radiculopathy Procedure: Left Sided C7-T1 Inter-Laminar Cervical Epidural Steroid Injection under biplanar fluoroscopy #1 out of 3 Surgeon: Stacey Brink Anesthesia: Local: 1% Lidocaine, IV sedation : Versed, and fentanyl. Complications: None. Estimated blood loss: None Specimens removed: None Fluoroscopic image: saved to electronic medical records. Indications for Procedure: The patient has been suffering from neck pain and pain radiating to the upper extremity . Inadequate pain control with pharmacologic regimen. An inter-laminar approach cervical epidural steroid injection was scheduled for the patient. Procedure and Findings: The patient was seen and examined in the holding area. The written informed consent was obtained after explaining the risks, benefits, alternatives of the procedure to the patient. The patient was brought to the procedure room and was placed in the prone position on the operating table. A pillow was placed under the upper chest. Standard anesthesia monitoring was done through out the procedure. Timeout was completed. The skin preparation was done with ChloraPrep 1 and draping was done in usual sterile fashion. Sterile technique was observed throughout the procedure. Under fluoroscopic guidance, the C7-T1 inter-laminar space was identified. 3 ml of 1% Lidocaine was injected with a 25 gauge needle to achieve adequate local anesthesia of the skin and subcutaneous tissue. A 20 gauge, 3.5 inch Tuohy type epidural needle was placed and gradually advanced up to the epidural space using loss of resistance technique and fluoroscopic guidance. Lateral, oblique fluoroscopic views confirm the needle position. No paresthesia was noted. A negative aspiration was confirmed and then 1 ml of Isovue-200 was injected. A good dye spread was seen in the epidural space and it was negative for any intrathecal, intraneural or intravascular spread. A total of 6 ml solution containing 10 mg Dexamethasone, and 5 ml preservative-free Normal Saline was injected slowly with intermittent aspiration. The needle was removed intact, area was cleaned and bandage was applied. Disposition : The patient tolerated the procedure very well. The patient was transferred to the recovery room and remained stable until discharged home. The patient was given detailed discharge instructions for bleeding, infection, increased pain at the injection site, and was advised to seek immediate medical attention should significant side effects develop. The patient will be followed up with our Pain [facility] within 4 weeks for follow-up visit.
[2021-03-19] MEDS ORDERED: LACTATED RINGERS 1,000 ML IV SCH (08:00)
[2021-03-19] MEDS ORDERED: IV FLUID CONTINUATION 1,000 ML IV ONE (08:12)
[2021-03-19 08:28] VITALS: BP 123/75; PULSE 68; RESP 18
--- NOTE | 2021-03-19 08:29 | FL ---
Fluoroscopy HISTORY: Pain 19 seconds fluoroscopy time supplied to the referring clinician. 2 intraoperative C-arm images docum ent the procedure. See dictated report from anesthesia.
== END 2021-03-19 08:53 | disposition home or self-care (01) ==
LOC: ORPAIN 06:33
DX: M54.12 Radiculopathy, cervical region (principal); I10 Essential (primary) hypertension; E11.9 Type 2 diabetes mellitus without complications; Z88.2 Allergy status to sulfonamides
CPT/HCPCS: 62321; J2250; J1100; J3010; Q9966; 99152; 99153

== ENCOUNTER → 2022-02-12 | Outpatient (CLI) | payer OTHER ==
--- NOTE | 2022-02-13 07:53 | MM ---
Reason for Exam: Screening (asymptomatic). Last screening mammogram was performed 12 month(s) ago. Patient History: Menarche at age 10. First Full-Term at age 18. Hysterectomy at age 29. Postmenopausal. 02/21/2015, Benign Core Biopsy on the left side. Risk Values: Lindy 5 year model risk: 1.7%. NCI Lifetime model risk: 7.1%. Prior Study Comparison: 01/12/2015 Bilateral Screening Mammogram, [facility]. 01/19/2015 Left Diagnostic Mammogram, [facility]. 08/31/2015 Left Diagnostic Mammogram, [facility]. 02/22/2016 Bilateral Screening Mammogram, [facility]. 02/27/2016 Left Diagnostic Mammogram, [facility]. 09/16/2017 Bilateral Screening Mammogram, [facility]. 10/21/2018 Bilateral Screening Mammogram, [facility]. 10/29/2018 Left Diagnostic Ultrasound, [facility]. 02/09/2020 Bilateral Screening Mammogram, [facility]. 02/11/2021 Bilateral Screening Mammogram, [facility]. Tissue Density: The breast tissue is heterogeneously dense. This may lower the sensitivity of mammography. Findings: Analyzed By CAD. Biopsy clip left breast upper outer quadrant redemonstrated. There are scattered and loosely grouped small benign-appearing round calcifications bilaterally redemonstrated There is no suspicious new distortion or new suspicious mass in either breast. Overall Assessment: Benign, BI-RAD 2 Management: Screening Mammogram of both breasts in 1 year. Some advise bilateral breast ultrasound surveillance in patients with background dense tissue. A clinical breast exam by your physician is recommended on an annual basis and results should be correlated with mammographic findings. Electronically signed and approved by: Dariel Workman M.D.
== END | disposition home or self-care (01) ==
LOC: RADMAMWWP 07:41
PROVIDERS: ATTEND Family Medicine
DX: Z12.31 Encounter for screening mammogram for malignant neoplasm of breast (principal); Z78.0 Asymptomatic menopausal state
CPT/HCPCS: 77063; 77067

== ENCOUNTER → 2022-12-30 | Outpatient (CLI) | payer OTHER ==
--- NOTE | 2022-12-30 12:17 | US ---
EXAMINATION TYPE: US thyroid st tissue head/neck DATE OF EXAM: 12/30/2022 COMPARISON: NONE CLINICAL INDICATION: Female, 62 years old with history of E04.1 SINGLE THYROID NODULE; f/u thyroid no dules, outside imaging, pt had biopsy but doesn't remember what side GLAND SIZE: Right Lobe: 4.4x2.1x2.2 Overall Parenchyma: heterogenous Left Lobe: 4.3x1.5x1.7 Overall Parenchyma: heterogenous Isthmus Thickness: 0.4m NODULES RIGHT: # of nodules measured on right: 2 1.0.7x0.6x 1.0cm upper medial, solid or almost completely solid, hypoechoic were nodule, which is wid er than tall, with smooth margins, without echogenic foci. 2. 1.6 x 1.6x 1.4m, lower mid, solid or almost completely solid, hypoechoic TR 4 nodule, which is wi baiely than tall, with smooth margins, without echogenic foci. LEFT: # of nodules measured on left: 1 1. 0.6 x 0.5x 0.5m, upper lateral, probable cyst. ISTHMUS: # of nodules measured in the isthmus: 1 1. 0.7x 0.4 x 1.1 solid or almost completely solid, hypoechoic nodule, which is wider than tall, wit h smooth margins, without echogenic foci. Bilateral neck scanned, no evidence of lymphadenopathy. Driver Trainee notes: Exam technically difficult, transitioned to lower frequency transducer to better a ssess parenchyma IMPRESSION: A few scattered bilateral nodules. Dominant nodule is a solid TR4 nodule on the right measuring 1.6 c m and a solid TR4 nodule in the isthmus measuring 1.1 cm. The first of these nodules meets criteria f or FNA. The other nodules can be followed.
== END | disposition home or self-care (01) ==
LOC: RADUSWWP 06:55
PROVIDERS: ATTEND Otolaryngology
DX: E04.2 Nontoxic multinodular goiter (principal)
CPT/HCPCS: 76536

== ENCOUNTER → 2023-01-09 | Outpatient (CLI) | payer OTHER ==
--- NOTE | 2023-01-09 15:07 | US ---
EXAMINATION TYPE: US kidneys/renal and bladder DATE OF EXAM: 01/09/2023 COMPARISON: CT from [facility] on PACS (12/18/2022) CLINICAL INDICATION: Female, 62 years old with history of N28.89 OTHER SPECIFIED DISORDERS OF KIDNEY AND URE; EXAM MEASUREMENTS: Right Kidney: 11.6 x 4.7 x 5.3 cm Left Kidney: 12.8 x 6.4 x 5.6 cm Right Kidney: No hydronephrosis or masses seen Left Kidney: Exophytic lesion measuring 1.3 x1.2 x 1.5, hypoechoic, at the midpole of the left kidney . There is a well-defined back wall favoring a cyst. Internal echoes could be debris given the higher attenuation on patient's CT scan. Bladder: wnl Bilateral Jets seen: Yes IMPRESSION: 1. No hydronephrosis. 2. Indeterminate 1.5 cm exophytic lesion from the lateral mid pole left kidney. A debris-filled cyst is favored. Recommend 6 month follow-up ultrasound to reassess.
== END | disposition home or self-care (01) ==
LOC: RADUSWWP 14:23
PROVIDERS: ATTEND Family Medicine
DX: N28.89 Other specified disorders of kidney and ureter (principal)
CPT/HCPCS: 76770

== ENCOUNTER 2023-01-26 12:02 | Day surgery (SDC) | payer OTHER ==
[2023-01-26] MEDS ORDERED: ALPRAZolam 0.5 MG TAB PO PRN (12:39)
[2023-01-26 13:27] VITALS: RESP 16
[2023-01-26 14:14] VITALS: BP 149/73; PULSE 80; TEMP 98
--- NOTE | 2023-01-26 14:45 | US ---
ULTRASOUND GUIDED FNA THYROID BIOPSY: CLINICAL HISTORY: Right thyroid nodule FINDINGS: The procedure was explained to the patient. The risks, complications, benefits and alternatives were discussed and any questions were answered. Informed consent was obtained. Patient was placed supin e on the ultrasound table and prepped and draped in the usual sterile fashion. Utilizing a 25 gauge needle, five passes were made into the requested 1.6 cm right thyroid nodule. Patient was stable throughout the procedure. Pathology is pending. All elements of maximal barrier technique were utilized. IMPRESSION: 1. Successful ultrasound guided FNA thyroid biopsy.
== END 2023-01-26 14:17 | disposition home or self-care (01) ==
LOC: RADPROMAIN 12:02
PROVIDERS: ATTEND Otolaryngology
DX: E04.1 Nontoxic single thyroid nodule (principal)
CPT/HCPCS: 10005; 88173; 88305

== ENCOUNTER → 2023-02-18 | Outpatient (CLI) | payer OTHER ==
--- NOTE | 2023-02-19 20:08 | MM ---
Reason for Exam: Screening (asymptomatic). Last mammogram was performed 1 year(s) and 1 month(s) ago. Patient History: Menarche at age 10. First Full-Term at age 18. Hysterectomy at age 29. Postmenopausal. 02/21/2015, Benign Core Biopsy on the left side. Risk Values: Lindy 5 year model risk: 1.7%. NCI Lifetime model risk: 6.9%. Prior Study Comparison: 02/09/2020 Bilateral Screening Mammogram, [facility]. 02/11/2021 Bilateral Screening Mammogram, [facility]. 02/12/2022 Bilateral MG 3D screening mammo w/cad, [facility]. Tissue Density: The breast tissue is heterogeneously dense. This may lower the sensitivity of mammography. Findings: Analyzed By CAD. Redemonstrated microclip upper outer quadrant left breast from prior biopsy with unchanged regional punctate calcifications here. There is no suspicious group of microcalcifications or new suspicious mass in either breast. Overall Assessment: Benign, BI-RAD 2 Management: Screening Mammogram of both breasts in 1 year. . Patient should continue monthly self-breast exams. A clinical breast exam by your physician is recommended on an annual basis. This exam should not preclude additional follow-up of suspicious palpable abnormalities. Note on Lindy scores and lifetime risk: 1. A Lindy score greater than 3% is considered moderate risk. If this is the case, consider specialist referral to assess eligibility for a risk reducing agent. 2. If overall lifetime risk for the development of breast cancer is 20% or higher, the patient may qualify for future screening with alternating mammogram and breast MRI. Electronically signed and approved by: Dinorah Ojeda M.D. Radiologist
== END | disposition home or self-care (01) ==
LOC: RADMAMWWP 09:25
PROVIDERS: ATTEND Family Medicine
DX: Z12.31 Encounter for screening mammogram for malignant neoplasm of breast (principal); Z78.0 Asymptomatic menopausal state
CPT/HCPCS: 77063; 77067

== ENCOUNTER → 2023-07-20 | Outpatient (CLI) | payer MEDICARE, OTHER ==
--- NOTE | 2023-07-20 13:01 | US ---
EXAMINATION TYPE: US kidneys/renal and bladder DATE OF EXAM: 07/20/2023 COMPARISON: NONE CLINICAL INDICATION: Female, 62 years old with history of N28.1 CYST OF KIDNEY, ACQUIRED; Kidney cyst s. EXAM MEASUREMENTS: Right Kidney: 12.8 x 5.5 x 5.9 cm Left Kidney: 11.8 x 5.7 x 6.2 cm Right Kidney: Measures upper limits versus slightly enlarged. Left Kidney: Anechoic area seen lower: 1.4 x 1.8 x 1.0 cm. Anechoic area seen medial at the mid/lower pole: 1.5 x 1.4 x 1.3 cm. Renal cysts appear grossly similar to prior given differences in technique. Bladder: Appears wnl. Bilateral Jets seen: Yes IMPRESSION: 1. No evidence for obstructive uropathy. 2. Left probable renal cysts stable from prior.
== END | disposition home or self-care (01) ==
LOC: RADUSWWP 12:15
PROVIDERS: ATTEND Family Medicine
DX: N28.1 Cyst of kidney, acquired (principal)
CPT/HCPCS: 76770

== ENCOUNTER → 2023-07-20 | Outpatient (CLI) | payer MEDICARE, OTHER ==
--- NOTE | 2023-07-20 14:01 | US ---
EXAMINATION TYPE: US thyroid st tissue head/neck DATE OF EXAM: 07/20/2023 COMPARISON: US 12/30/2022 CLINICAL INDICATION: Female, 62 years old with history of E04.1 THYROID NODULE; Thyroid nodule. Hx FN A. Patient takes synthroid. GLAND SIZE: Right Lobe: 5.6 x 2.3 x 2.2 cm Overall Parenchyma: heterogenous Left Lobe: 4.8 x 1.6 x 1.9 cm Overall Parenchyma: heterogenous Isthmus Thickness: 0.46 cm NODULES RIGHT: # of nodules measured on right: 1 1. 1.3 X 1.0 x 0.8 cm, upper medial, Prior size: 0.7 x 0.6 x 1.0 cm. TIRADS Score: 4 TIRADS Category 4: Composition: Solid or almost completely solid (2 points). Echogenicity: Hypoechoic (2 points). Shape: Wider than tall (0 points). Margin: Smooth (0 points). Echogenic foci: None or large comet-tail artifacts (0 points) Recommendation: If >1.5cm: FNA; If >1cm: Follow up at 1,2, 3,5 years LEFT: # of nodules measured on left: 1 1. 0.7 X 0.7 x 0.7 cm, mid lateral Prior size: 0.5 x 0.6 x 0.5 cm TIRADS Score: 0 TIRADS Category 1: Composition: Cystic or almost completely cystic (0 points). Recommendation: No FNA ISTHMUS: # of nodules measured in the isthmus: 1 1. 1.1 X 0.7 x 0.6 cm Prior size: 0.7 x 1.1 x 0.4 cm TIRADS Score: 4 TIRADS Category 4: Composition: Solid or almost completely solid (2 points). Echogenicity: Hypoechoic (2 points). Shape: Wider than tall (0 points). Margin: Smooth (0 points). Echogenic foci: None or large comet-tail artifacts (0 points) Recommendation: If >1.5cm: FNA; If >1cm: Follow up at 1,2, 3,5 years Bilateral neck scanned, no evidence of lymphadenopathy. IMPRESSION: Right thyroid lobe and isthmus nodules that meet criteria for follow-up.
[2023-07-20 16:13] LABS: T4, Free (Free Thyroxine) 0.98 ng/dL (0.80-1.80)
== END | disposition home or self-care (01) ==
LOC: RADUSWWP 12:07
PROVIDERS: ATTEND Otolaryngology
DX: E04.2 Nontoxic multinodular goiter (principal)
CPT/HCPCS: 76536; 84439; 84443

== ENCOUNTER → 2024-02-25 | Outpatient (CLI) | payer MEDICARE ==
--- NOTE | 2024-02-25 15:18 | US ---
EXAMINATION TYPE: US thyroid st tissue head/neck DATE OF EXAM: 02/25/2024 COMPARISON: NONE CLINICAL INDICATION: Female, 63 years old with history of E04.1 NONTOXIC SINGLE THYROID NO; Thyroid nodule GLAND SIZE: Right Lobe: 4.9 x 1.9 x 1.8 cm Overall Parenchyma: heterogeneous Left Lobe: 4.9 x 1.7 x 1.6 cm Overall Parenchyma: heterogeneous Isthmus Thickness: cm NODULES RIGHT: # of nodules measured on right: 1 1. 1.3 X .6 x .9 cm, upper , solid or almost completely solid, hypoechoic nodule, which is wider th an tall, with smooth margins, without echogenic foci. TR 4 Prior size: 1.3 x .8 x 1.0 cm LEFT: # of nodules measured on left: 1 1. .6 X .7 x .5 cm, mid , cystic or almost completely cystic, anechoic nodule, which is wider than tall, with smooth margins, without echogenic foci. Prior size: .7 x .7 x .7 cm ISTHMUS: # of nodules measured in the isthmus: 1 1. 1.0 X .4 x .5 cm solid or almost completely solid, hypoechoic nodule, which is wider than tall, with smooth margins, without echogenic foci. TR 4 Prior size: 1.1 x .6 x .7 cm Bilateral neck scanned, no evidence of lymphadenopathy. IMPRESSION: 1. Stable thyromegaly correlate for thyroiditis. 2. Stable bilateral thyroid nodules unchanged in appearance. According to ACR guidelines continued jasmine rveillance recommended. 2017 ACR TI-RADS LEVEL: TR-RADS 4 - Moderately Suspicious: Follow if > 1 cm, FNA if > 1.5 cm *Highest TI-RADS level nodule reported
--- NOTE | 2024-02-26 08:46 | MM ---
Reason for Exam: Screening (asymptomatic). Last screening mammogram was performed 12 month(s) ago. Patient History: Menarche at age 10. First Full-Term at age 18. Hysterectomy at age 29. Postmenopausal. 02/21/2015, Benign Core Biopsy on the left side. Risk Values: Lindy 5 year model risk: 1.8%. NCI Lifetime model risk: 6.6%. Prior Study Comparison: 02/11/2021 Bilateral Screening Mammogram, [facility]. 02/12/2022 Bilateral MG 3D screening mammo w/cad, [facility]. 02/18/2023 Bilateral MG 3D screening mammo w/cad, [facility]. Tissue Density: The breasts are heterogeneously dense, which may obscure small masses. Findings: Analyzed By CAD. There is no suspicious group of microcalcifications or new suspicious mass in either breast. Overall Assessment: Benign, BI-RAD 2 Management: Screening Mammogram of both breasts in 1 year. . Patient should continue monthly self-breast exams. A clinical breast exam by your physician is recommended on an annual basis. This exam should not preclude additional follow-up of suspicious palpable abnormalities. Note on Lindy scores and lifetime risk: 1. A Lindy score greater than 3% is considered moderate risk. If this is the case, consider specialist referral to assess eligibility for a risk reducing agent. 2. If overall lifetime risk for the development of breast cancer is 20% or higher, the patient may qualify for future screening with alternating mammogram and breast MRI. Electronically signed and approved by: Jhon Dalton M.D. Radiologis
== END | disposition home or self-care (01) ==
LOC: RADMAMWWP 14:15
PROVIDERS: ATTEND Internal Medicine
DX: Z12.31 Encounter for screening mammogram for malignant neoplasm of breast (principal); R92.333 Mammographic heterogeneous density, bilateral breasts; E04.2 Nontoxic multinodular goiter; Z78.0 Asymptomatic menopausal state
CPT/HCPCS: 76536; 77063; 77067